=== PATIENT | male | born 1965 | race Caucasian/White ===

== ENCOUNTER 2024-08-01 13:05 | Outpatient (AMB) | payer MEDICARE, MEDICAID, SELFPAY ==
--- NOTE | 2024-08-01 13:09 | A.SPINEOV_ITS ---
Vital Signs 08/01/24 13:14 Height 5 ft 8 in Weight 157 lb BMI 23.9 Intake Visit Reasons: LBP Intake Note: Mr. Morales is here today c/o Low back pain. Net Maker Required: No Allergies Opioids Allergy (Unknown, Uncoded 08/01/24 13:15) Unknown Physical Exam Vital Signs: BMI result Body Mass Index 23.9 Assessment & Plan Assessment & Plan (1) Cervical myelopathy: Code(s): G95.9 - Disease of spinal cord, unspecified Category: Medical Plan Dear Dr Preston, Thank you for referring Mr Morales to our office today. He is a very nice 58-year-old gentleman, recovering alcoholic, last drink was a year and 3 months ago, presents to the office today for evaluation of chronic left leg pain that has been going on for few years but has steadily gotten worse over the last 6 months or so. It starts on the left side just above his belt line radiates into his buttock, posterolateral thigh, to some degree also into his anterior thigh, going down through the front of his leg into his calf in his whole foot. The pain comes on when he stands or walks, goes away when he sits down. He had previously been diagnosed with degenerative disc disease. He had seen an orthopedic surgeon at [facility], and was sent to physical therapy late in 2023. He completed that without any improvement in his symptoms. He had been taking Tylenol and ibuprofen. Unfortunately it did not do anything. He took as much as 800 mg of Motrin 3 times a day without any relief. No cortisone injections, chiropractic or acupuncture. The patient is very frustrated with his quality of life as he is having a lot of difficulty being active. He comes in today with a lumbar MRI showing foraminal stenosis and multilevel degenerative disc disease. PMH: He is a recovering alcoholic, his last drink was a year and 3 months ago, denies any history of cirrhosis or complications secondary to alcoholism. History of double hernia repair, remote history of cervical laminectomy at [facility] many years ago. Based on his incision I would suspect it was C7- T1. Denies any history of cardiac disease, pulmonary issues, liver or kidney problems, blood clots, bleeding disorders, cancer or major abdominal surgery Social hx: As above with alcohol, he does smoke marijuana daily, and smokes about half a pack a cigarettes a day Medications: He does not take any medications except oixc-alo-cceaudb liver health pills which I filled with vitamins and various nutraceuticals Allergies: He is not allergic to opioids, but gets severely nauseous with them Physical exam: Awake alert oriented no acute distress, he has a well healed scar at about what I suspect is the C7-T1 level. He has atrophy of the right hand with a flexion contracture. He has minimal extensor movement of his right hand and digits. His motor strength with hand grasp and palmar flexion is weak bilaterally, worse on the left than the right. He also has weakness of his wrists bilaterally. Biceps, triceps and deltoids are full strength. 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 Imaging review: Lumbar MRI done and [facility] in September of 2023 reveals multilevel degenerative disc disease at every level of the lumbar spine, he has straightening of the normal lordotic curvature of the spine with no si gnificant central canal stenosis but he does have severe foraminal stenosis in the left L 4 and left L5 foramen Impression: 58-year-old male, recovering alcoholic, no known history of liver disease per the patient, presents with a severe left leg radiculopathy which seems consistent with his MRI showing compression of the left L4 and left L5 nerve root. He does not have any centralized back pain. Typically this is something Dr. Dean would treat with foraminotomy. I will review the imaging with Dr. Dean and get back to the patient with a final plan. We did briefly discuss risks, benefits as well as surgical recovery of foraminotomy. In the interim, I have asked the patient to contact you just to get a preoperative note clarifying if he has any history of liver disease given his previous history of alcoholism. Also, he is demonstrating signs of myelopathy on his exam and also complains of numbness in his arms so I would like to get a cervical MRI to exclude compression. Thank you for allowing us to care for your patient. The total time spent with this visit with this patient was 45 minutes reviewing history, physical exam, lumbar imaging review, and implementation of treatment plan or further diagnostic testing Lobo Dean MD,PhD [facility] Orders: Orders MR cervical spine wo con Today G95.9 - Disease of spinal cord, unspecified Coding Level of Care Code New Pt Level 4 (52108) Diagnoses Cervical myelopathy G95.9
[2024-08-01 13:14] VITALS: BMI 23.9
== END 2024-08-01 14:11 | disposition home or self-care (01) ==
PROVIDERS: PCP Family Medicine; Referring Provider Family Medicine; Visit Provider Physician Assistant
DX: G95.9 Disease of spinal cord, unspecified (principal)
CPT/HCPCS: 99204

== ENCOUNTER → 2024-08-01 13:05 | Outpatient (BNVA) | payer MEDICARE, MEDICAID, SELFPAY | PROVIDERS: PCP Family Medicine; Referring Provider Family Medicine; Visit Provider Physician Assistant | DX: G95.9 Disease of spinal cord, unspecified (principal) | CPT/HCPCS: 99202 ==

== ENCOUNTER → 2024-08-07 19:34 | Outpatient (BNV) | payer MEDICARE, MEDICAID, SELFPAY | PROVIDERS: Visit Provider Radiology Diagnostic Radiology | DX: M47.812 Spondylosis without myelopathy or radiculopathy, cervical region (principal); M99.61 Osseous and subluxation stenosis of intervertebral foramina of cervical region | CPT/HCPCS: 72141 ==

== ENCOUNTER 2024-08-07 19:41 | Outpatient (REF) | payer MEDICARE, MEDICAID, SELFPAY ==
--- NOTE | ~2024-08-07 | MR_ITS ---
EXAMINATION: MR CERVICAL SPINE WITHOUT CONTRAST CLINICAL INFORMATION: Disease of spinal cord, unspecified. COMPARISON: None available. TECHNIQUE: MRI of the cervical spine was obtained using routine sequences without contrast. FINDINGS: Craniocervical junction is intact. Bone marrow STIR signal involving mostly the vertebral bodies C5 C7 and to a lesser extent C4 and T1. Multilevel disc desiccation and marginal osteophyte formation and endplate irregularity C4 T1. Grade 1 retrolisthesis C5-6 and C6-7. Reverse curvature apex at C5-6. Buckling deformity in the dorsal aspect of the thecal sac secondary to ligamentum flavum hypertrophy, C5-6 and C6-7 levels and to a lesser extent C4-5. C2-3: No disc herniation. No neuroforamina stenosis. Left facet joint hypertrophy. C3-4: No disc herniation. Facet joint hypertrophy bilaterally. No neuroforamina stenosis. C4-5: Broad-based disc osteophyte complex formation. Facet joint hypertrophy. No cord compression. Bilateral, (on the right side neuroforamina stenosis. C5-6: Disc osteophyte complex formation resulting in flattening deformity of the spinal cord with CSF effacement of the thecal sac. No gross cord signal abnormality. Bilateral neuroforamina stenosis. C6-7: Disc osteophyte complex formation resulting in flattening deformity of the spinal cord and CSF effacement of the thecal sac. No cord signal abnormality. Bilateral neuroforamina stenosis. C7-T1: Disc osteophyte complex formation producing the AP diameter of the thecal sac. No cord compression. No cord signal abnormality. Bilateral neuroforamina stenosis. T1-2: No disc herniation. No neuroforamina stenosis. Right-sided perineural cysts. No prevertebral compartment hematoma, mass or fluid collection. Flow void signal within the main vessels is normal. Codominant vertebral arteries. MR/MR cervical spine wo con IMPRESSION: Multilevel cervical spondylosis C4 C7 resulting in cord compression without cord edema and or myelopathy at C5-6 and C6-7 levels and bilateral neuroforamina stenosis. Electronically signed by: Adama Douglass MD 08/08/2024 08:43 AM EDT
== END 2024-08-07 19:42 | disposition home or self-care (01) ==
LOC: HO.MRI 19:41
PROVIDERS: Visit Provider Physician Assistant
DX: G95.9 Disease of spinal cord, unspecified (principal)
CPT/HCPCS: 72141

== ENCOUNTER 2024-09-18 | Outpatient (REF) | payer MEDICARE, MEDICAID, SELFPAY ==
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
[2024-09-18 10:24] VITALS: BP 115/62; PULSE 54; RESP 18; O2SAT 100; BMI 23.0
--- NOTE | 2024-09-18 10:39 | P.CONAN_ITS ---
HPI - Anesthesia Eval Consult details Narrative: 58yo M for C5-6,C6-7 Ant Cerv Discectomy w/ fusion, 10/02/24 No recent illness No CP/SOB with walking/biking HR alfreda and variable at PAT. ETOH abuse in remission for >1 year Smoker cutting back preop Front lower teeth x 3 slight loose. Pt states no issues when biting into hard things. Reviewed associated risks, verbalized understanding PMFSH Active Problems Active Problems: All Active Problems Cervical myelopathy (Acute) Past Medical History Medical History (Updated 09/18/24 @ 10:18 by Kina Blackburn RN) Arthritis Heartburn Benign liver cyst Alcohol dependence in remission Vitamin D deficiency Elevated blood pressure reading Spinal stenosis at L4-L5 level Back pain Family History Family history of problems with anesthesia: No Surgical History Surgical History (Updated 09/18/24 @ 10:20 by Kina Blackburn RN) Hx of tonsillectomy Hx of right inguinal hernia repair Hx of left inguinal hernia repair Hx of cervical discectomy History of Problems with Anesthesia: No Social History Social History Are you a primary healthcare market consultant to a significant other at home: No Do you presently have visiting nurse or other home services: No Patient Tobacco Use Status: Former Tobacco user Tobacco use type: Cigarette Cigarettes Per Day: 10 Years Smoked: 44 Smoked in Last 30 Days: Yes Use of substances other than those prescribed or required for medical reasons: Yes Substance Use Type Other:: smokes marijuana daily-advised to hold 3 days pre-op Substance Use Frequency: Daily Have you been hit, kicked, punched, or otherwise hurt by someone within the past year? If so, by whom?: No Spiritual Healthcare Practices: no Zoroastrian Healthcare Practices: no-Adventism Cultural Healthcare Practices: no Are you DNR?: No Advance Directives: No (states Aunt is HCP but no official form) Advance Directives Information Provided: Yes (as above noted) Advance Directives on File: No Poor oral hygiene: No (loose teeth lower front due to bone loss & missing teeth) Meds Allergies Allergy/AdvReac Type Severity Reaction Status Date / Time Opioids - Morphine Analogues AdvReac Severe Nausea Verified 09/17/24 08:35 Home Medications ?Medication ?Instructions ?Recorded ?Confirmed ?Last Taken ?Type acetaminophen 500 mg tablet 500 mg PO Q6H PRN pain 09/18/24 09/18/24 Unknown History multivitamin 1 tab PO DAILY 09/18/24 09/18/24 Unknown History Exam Height,Weight and Vital Signs: Height 5 ft 8 in Weight 68.492 kg Last Vital Signs Pulse 54 09/18/24 10:24 Resp 18 09/18/24 10:24 BP 115/62 09/18/24 10:24 Pulse Ox 100 09/18/24 10:24 O2 Del Method Room Air 09/18/24 10:24 Airway Loose/Missing/Broken Teeth: Yes (#9 broken, Loose front lower x 3, extractions throughout) Heart: alfreda, regular Lungs: CTAB Assessment and Plan Assessment Anesthesia Assessment: Anesthesia Plan Discussed, Smoking Cess. Discussed and PAT Visit Final Anesthetic Review Family History of Problems with Anesthesia: No History of Problems with Anesthesia: No
[2024-09-18 11:43] LABS: Hemoglobin 13.3 g/dl (14.0-18.0); Mean Corpuscular HGB Conc 34.1 g/dl (31.0-36.0); Mean Corpuscular Hemoglobin 31.3 pg (27.0-33.0); Mean Corpuscular Volume 91.8 fL (80.0-98.0); Mean Platelet Volume 10.7 fL (9.4-12.4); Platelet Count 286 X10*3/uL (160-400); Red Blood Count 4.25 X10*6/uL (4.60-5.80); White Blood Count 7.8 X10*3/uL (4.8-10.8)
[2024-09-18 12:01] LABS: Alanine Aminotransferase 31 U/L (0-40); Albumin Level 4.3 g/dL (3.5-5.0); Alkaline Phosphatase 55 U/L (39-117); Anion Gap 11 (12-20); Aspartate Amino Transferase 34 U/L (5-37); Bilirubin Total 0.3 mg/dL (0.0-1.0); Blood Urea Nitrogen 7 mg/dL (9-16); Calcium 8.9 mg/dL (8.4-10.2); Carbon Dioxide 29 mmol/L (22-29); Chloride 105 mmol/L (96-108); Creatinine Clr Calc Pharmacy 106.4; Estimated Glomerular Filt Rate > 60; Glucose Random 92 mg/dL (60-115); Potassium 4.9 mmol/L (3.3-5.1); Sodium 140 mmol/L (135-145)
--- OUTSIDE RECORDS SUMMARY | 2024-11-05 06:46 | XMS_ITS | Clinical Summary ---
Author Organization [employer] Address [address] [place] [address] Care Team Providers Care Cosmetic Sales Name Role Phone Imelda Prseton MD Primary Care Provider [phone] Kristen Lawson Unavailable Unavailable Allergies No known [...] AM EDT): Staying with a freind on [employer] Assessment & Plan (08/08/2022 9:34 AM EDT): [...] his SSI was stolen due to fraud. [facility] says he may be able to get [...] Type Department Care Team Description 09/17/2024 Telephone [place] [facility] [address] [facility] [place] [address] Ami Sarabia RN req labs pre-op 08/19/2024 9:00 AM EDT Office Visit [place] [facility] [address] [facility] [place] [address] Imelda Preston MD Spinal stenosis of lumbar region with radiculopathy (Primary Dx); Sheltered homelessness; Cigarette nicotine dependence, uncomplicated from Last 3 Months Family History Relation Name Status Comments Father Mother Other Social History Tobacco Use Types Packs/Day Years Used Date Smoking Tobacco: Every Day Cigarettes Smokeless Tobacco: Never Tobacco Cessation:Ready to Q uit: Not Asked; Counseling Given: Not Answered Alcohol Use Standard Drinks/Week Comments Not Currently 0 (1 standard drink = 0.6 oz pur e alcohol) Overall Financial Resource Strain (CARDI) Answe r Date Recorded How hard is [...] 63 08/19/2024 8:59 AM EDT Temperature 37.1 C (98.7 F) 08/19/2024 8:59 AM EDT Respiratory Rate 20 07/08/2024 8:39 AM EST [...] 19+ 3-dose series) 12/05/1986 Pneumococcal Vaccine: 50+ Years (1 of 2 - PCV) 12/05/1986 Zoster Vaccines (1 of 2) 12/05/2017 COVID-19 Vaccine ( - 2023-2 5 season) 2024 Tobacco Screening 11/19/2024 11/20/2023 Influenza Vaccine (Season Ended) 2025 Lipid Panel 07/24/2028 07/25/2023, 07/25/2023 RSV Patients and Patients Aged 60 years or older (1 - [...] Procedure Name Priority Date/Time Associated Diagnosis Comments LIPID PANEL, STANDARD Routine 07/25/2023 Mixed hyperlipidemia from Last 3 Months or Most Recently Relevant to Health Maintenance Results * Lipid Panel, Standard (07/25/2023) Blood Venous blood specimen / Unknown Imelda Preston MD LAB BLOOD ORDERABLES Final Res ult EXTERNAL LAB from Last 3 Months or Most Recently Relevant to Health Maintenance Insurance [facility] STANDARD [employer] MEDICARE REPLACEMENT Care Teams Cosmetic Sales Relationship Specialty Start Date End Date Imelda Preston MD [address] [place] [address] PCP - General Family Medicine 08/08/22 Kristen Lawson Community Health Worker 11/28/22
== END 2024-09-18 00:01 | disposition home or self-care (01) ==
LOC: HO.PAT
PROVIDERS: Nurse Practitioner; Visit Provider Neurological Surgery
DX: Z01.818 Encounter for other preprocedural examination (principal); G95.9 Disease of spinal cord, unspecified
CPT/HCPCS: 36415; 80053; 85027

== ENCOUNTER 2024-09-27 11:36 | Outpatient (AMB) | payer MEDICARE, MEDICAID, SELFPAY ==
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
--- NOTE | 2024-09-27 11:45 | HO.SPINEOV ---
Intake Visit Reasons: Discuss surgery Intake Note: Mr. Morales is here to Discuss Surgery. Tactical Intelligence Officer Required: No Allergies Opioids - Morphine Analogues Adverse Reaction (Severe, Verified 09/27/24 11:45) Nausea Assessment & Plan Assessment & Plan (1) Cervical myelopathy: Code(s): G95.9 - Disease of spinal cord, unspecified Category: Medical Plan Mr Morales is here in follow up today. We submitted for surgery ACDF C5-6, C6-7 for cervical myelopathy. Unfortunately his insurance company denied it saying he needs to quit smoking and undergo physical therapy. I reviewed his MRI done at [place] with him, we sat down discuss the indications for surgery including the bilateral arm numbness, hand weakness, gait instability as well as hyperreflexia in the form of Wilson's sign and clonus on his physical exam. His MRI clearly shows spinal cord compression at these 2 levels C5-6, C6-7. I do not understand the denial from the insurance company. Cervical myelopathy is not something that is going to respond to physical therapy. In fact it only in dangerous the patient's well-being to continue to push the surgery off in an attempt to get him to quit smoking or to do physical therapy for year. I am going to resubmit for the surgery, and hopefully this note provide some clarification as to the indication. If not we will need to do a peer to peer and I can have the insurance company explain to me and Dr. Dean specifically why they want to continue to put this patient at further risk. Pt was given risk and benefits of surgery including but not limited to infection, hematoma , nerve injury,durotomy, weakness,bowel/bladder injury, persistent pain, dysphagia, vocal hoarseness as well as the option to continue with conservative treatment and patient wishes to proceed with surgery. . All questions were answered to the best of our ability. If there is anything about this patients medical history that we have overlooked or concerns you have about us proceeding with surgery we would appreciate any input you can offer. Total amount of time spent in this visit was 20 minutes in discussion of symptoms, cervical MRI imaging results and subsequent plan of care Lobo Dean MD,PhD [facility] Coding Level of Care Code Est Pt Level 3 (76276) Diagnoses Cervical myelopathy G95.9
== END 2024-09-27 12:06 | disposition home or self-care (01) ==
LOC: HO.HNS 11:37
PROVIDERS: PCP Family Medicine; Visit Provider Physician Assistant
DX: G95.9 Disease of spinal cord, unspecified (principal)
CPT/HCPCS: 99213

== ENCOUNTER → 2024-09-27 11:36 | Outpatient (BNVA) | payer MEDICARE, MEDICAID, SELFPAY | PROVIDERS: PCP Family Medicine; Visit Provider Physician Assistant | DX: G95.9 Disease of spinal cord, unspecified (principal) | CPT/HCPCS: 99212 ==

== ENCOUNTER → 2024-11-22 13:01 | Outpatient (BNV) | payer MEDICARE, MEDICAID, SELFPAY | PROVIDERS: Visit Provider Internal Medicine | DX: R00.1 Bradycardia, unspecified (principal) | CPT/HCPCS: 93010 ==

== ENCOUNTER 2024-12-05 05:54 | Day surgery (SDC) | payer MEDICARE, MEDICAID, SELFPAY ==
[2024-11-21 12:00] VITALS: BMI 23.0
--- NOTE | 2024-11-22 13:01 | ECG_ITS ---
Test Reason : PREOP Blood Pressure : */* mmHG Vent. Rate : 42 BPM Atrial Rate : 42 BPM P-R Int : 144 ms QRS Dur : 98 ms QT Int : 432 ms P-R-T Axes : 18 -44 -25 degrees QTcB Int : 360 ms Marked sinus bradycardia Left axis deviation Abnormal ECG No previous ECGs available Referred By: Ciara Wagner Electronically Signed By: YONG KELLEY
--- NOTE | 2024-12-04 09:00 | HO.ANESPROP2 ---
Documented by User: Ciara Wagner NP 12/04/24 14:33 HPI - Anesthesia Eval Consult details Narrative: 58yo M for C5-6, C6-7 Ant Cerv Discectomy w/ fusion Preop EKG with marked SB. Previous EKG with HR in 60's. No heart blocks identified on EKG. T/C to patient - pt is asymptomatic , active with walking and yardwork. Has wrist heart rate monitor and will document HR to bring log DOS. Previous documented HR 50-60's. Hx of ETOH - multiple [facility] ER/admits with intox [id number]. Sober > 1 year. [facility] Active Problems Active Problems: All Active Problems Cervical myelopathy (Acute) Past Medical History Medical History (Updated 12/05/24 @ 07:09 by Adenike Beltran RN) Hx of sinus bradycardia Arthritis Heartburn Benign liver cyst Alcohol dependence in remission Vitamin D deficiency Elevated blood pressure reading Spinal stenosis at L4-L5 level Back pain Family History Family history of problems with anesthesia: No Surgical History Surgical History Hx of tonsillectomy Hx of right inguinal hernia repair Hx of left inguinal hernia repair Hx of cervical discectomy History of Problems with Anesthesia: No Social History Social History Are you a primary foster care therapist to a significant other at home: No Do you presently have visiting nurse or other home services: No Patient Tobacco Use Status: Former Tobacco user Tobacco use type: Cigarette Cigarettes Per Day: 10 Years Smoked: 44 Use of substances other than those prescribed or required for medical reasons: Yes Substance Use Type Other:: advised to hold 3-5 days pre-op Substance Use Frequency: Daily Have you been hit, kicked, punched, or otherwise hurt by someone within the past year? If so, by whom?: No Spiritual Healthcare Practices: no Yazidi Healthcare Practices: no Cultural Healthcare Practices: no Are you DNR?: No Advance Directives: No (states aunt is HCP but no official form) Poor oral hygiene: No (loose tooth lower front due to bone loss & missing teeth) Meds Allergies Allergy/AdvReac Type Severity Reaction Status Date / Time Opioids - Morphine Analogues AdvReac Severe Nausea Verified 09/27/24 11:45 Home Medications ?Medication ?Instructions ?Recorded ?Confirmed ?Last Taken ?Type acetaminophen 500 mg tablet 500 mg PO Q6H PRN pain 09/18/24 12/05/24 11/21/24 History multivitamin 1 tab PO DAILY 09/18/24 11/21/24 11/21/24 History Exam Height,Weight and Vital Signs: Height 5 ft 8 in Weight 68.492 kg Pertinent Lab Results Pertinent Lab Results: Laboratory Tests 09/18/24 11:08 WBC 7.8 Hgb 13.3 L Hct 39.0 L Plt Count 286 Sodium 140 Potassium 4.9 Chloride 105 Carbon Dioxide 29 BUN 7 L Creatinine 0.75 Assessment and Plan Assessment Anesthesia Assessment: Chart Reviewed Final Anesthetic Review Family History of Problems with Anesthesia: No History of Problems with Anesthesia: No Documented by User: Mini Serrano NP 12/04/24 14:11 [facility] Past Medical History Medical History (Updated 12/05/24 @ 07:09 by Adenike Beltran RN) Hx of sinus bradycardia Arthritis Heartburn Benign liver cyst Alcohol dependence in remission Vitamin D deficiency Elevated blood pressure reading Spinal stenosis at L4-L5 level Back pain Surgical History Surgical History Hx of tonsillectomy Hx of right inguinal hernia repair Hx of left inguinal hernia repair Hx of cervical discectomy Social History Social History Are you a primary foster care therapist to a significant other at home: No Do you presently have visiting nurse or other home services: No Patient Tobacco Use Status: Former Tobacco user Tobacco use type: Cigarette Cigarettes Per Day: 10 Years Smoked: 44 Use of substances other than those prescribed or required for medical reasons: Yes Substance Use Type Other:: advised to hold 3-5 days pre-op Substance Use Frequency: Daily Have you been hit, kicked, punched, or otherwise hurt by someone within the past year? If so, by whom?: No Spiritual Healthcare Practices: no Yazidi Healthcare Practices: no Cultural Healthcare Practices: no Are you DNR?: No Advance Directives: No (states aunt is HCP but no official form) Poor oral hygiene: No (loose tooth lower front due to bone loss & missing teeth) Meds Allergies Allergy/AdvReac Type Severity Reaction Status Date / Time Opioids - Morphine Analogues AdvReac Severe Nausea Verified 09/27/24 11:45 Home Medications ?Medication ?Instructions ?Recorded ?Confirmed ?Last Taken ?Type acetaminophen 500 mg tablet 500 mg PO Q6H PRN pain 09/18/24 12/05/24 11/21/24 History multivitamin 1 tab PO DAILY 09/18/24 11/21/24 11/21/24 History Exam Narrative Narrative: EKG 11/22/24 Vent. Rate : 42 BPM Atrial Rate : 42 BPM P-R Int : 144 ms QRS Dur : 98 ms QT Int : 432 ms P-R-T Axes : 18 -44 -25 degrees QTcB Int : 360 ms Marked sinus bradycardia Left axis deviation Abnormal ECG No previous ECGs available Documented by User: Yola Rebolledo MD 12/05/24 07:17 [facility] Past Medical History Medical History (Updated 12/05/24 @ 07:09 by Adenike Beltran RN) Hx of sinus bradycardia Arthritis Heartburn Benign liver cyst Alcohol dependence in remission Vitamin D deficiency Elevated blood pressure reading Spinal stenosis at L4-L5 level Back pain Surgical History Surgical History Hx of tonsillectomy Hx of right inguinal hernia repair Hx of left inguinal hernia repair Hx of cervical discectomy Social History Social History Are you a primary foster care therapist to a significant other at home: No Do you presently have visiting nurse or other home services: No Patient Tobacco Use Status: Former Tobacco user Tobacco use type: Cigarette Cigarettes Per Day: 10 Years Smoked: 44 Use of substances other than those prescribed or required for medical reasons: Yes Substance Use Type Other:: advised to hold 3-5 days pre-op Substance Use Frequency: Daily Have you been hit, kicked, punched, or otherwise hurt by someone within the past year? If so, by whom?: No Spiritual Healthcare Practices: no Yazidi Healthcare Practices: no Cultural Healthcare Practices: no Are you DNR?: No Advance Directives: No (states aunt is HCP but no official form) Poor oral hygiene: No (loose tooth lower front due to bone loss & missing teeth) Meds Allergies Allergy/AdvReac Type Severity Reaction Status Date / Time Opioids - Morphine Analogues AdvReac Severe Nausea Verified 09/27/24 11:45 Home Medications ?Medication ?Instructions ?Recorded ?Confirmed ?Last Taken ?Type acetaminophen 500 mg tablet 500 mg PO Q6H PRN pain 09/18/24 12/05/24 11/21/24 History multivitamin 1 tab PO DAILY 09/18/24 11/21/24 11/21/24 History Exam Airway Mallampati Class: II TM Dist: >3cm Neck ROM: Full Loose/Missing/Broken Teeth: Yes and Upper Assessment and Plan Assessment Anesthesia Assessment: Anesthesia Plan Discussed Final Anesthetic Review NPO: Yes ASA Class: II Final Preanesthetic Review: No Changes in Pt Med Stat, Meds/Allgs Chart Reviewed, Consent Obtained/Reviewed and Anes Risks/Benef Reviewed Patient Risk: Low Procedure Risk: Intermediate Anesthetic Plan Anesthetic Plan: GA Disposition: Standard PACU
[2024-12-05] VITALS (7 sets, daily range): BP systolic 105–132; BP diastolic 39–80; PULSE 36–45; RESP 14–20; TEMP 36.4–36.6; O2SAT 98–100; BMI 21.9
--- NOTE | ~2024-12-05 | FL_ITS ---
EXAMINATION: FL GUIDANCE ONLY HISTORY: cervical fusion COMPARISON: Correlation is made with an MRI of the cervical spine dated 08/07/2024. TECHNIQUE: Fluoroscopy time: 4.7 seconds. Cumulative Dose: 0.6022 mGy. DAP: 0.2620 mGym2 Images: 2. FINDINGS: Fluoroscopic spot films of the cervical spine demonstrate anterior cervical disc fusion at C5-6 and C6-7. FL/FL guidance in OR IMPRESSION: Fluoroscopy during procedure. Please see procedure report for additional information. Electronically signed by: Camden Humphries MD 12/05/2024 09:52 AM EDT
[2024-12-05] MEDS: Lactated Ringers 1,000 ML 100 ML IVCONT (06:08)
--- NOTE | 2024-12-05 07:01 | P.HPSUR_ITS ---
Pre-Procedural Eval Section A - 24 Hr Update-Section A only Date of Service: 12/05/24 The patient is an INPATIENT: No Changes since office visit: No Cold of Flu in the past 2 weeks, No New Medical Problems, No Changes in Medication and No Patient answered all questions The patient has been examined within 24 hours of the surgical procedure. The History & Physical has been completed within 30 days and I have reviewed it.: No Section B - Complete if H&P > 30 days Chief Complaint: Disease of spinal cord, unspecified Allergies: Allergies Allergy/AdvReac Type Severity Reaction Status Date / Time Opioids - Morphine Analogues AdvReac Severe Nausea Verified 09/27/24 11:45 Review of Systems Sugical H&P ROS: Negative: Constitution, Cardiovascular, Respiratory, Neurological, Psychiatric, Hem-Onc, Allergic/Immunologic, Gastrointestinal, Genitourinary, Musculoskeletal, Integumentary, Endocrine and Eyes/Ears/N ose/Throat Exam Surgical H&P Exam: Normal: HEENT, Normal: Heart, Normal: Lungs, Normal: Extremities, Normal: Abdomen, Normal: Skin and Normal: Neurological (Awake alert oriented x3) Plan Diagnosis/Plan: Unchanged C5-6, C6-7 anterior cervical diskectomy and fusion Time Spent With Patient Time: Total time managing care of this patient today __ 5 __ minutes.
--- NOTE | 2024-12-05 07:02 | PM.DS ---
DS: Providers Provider Date of Service: 12/05/24 Date of discharge: 12/05/24 Primary care physician: Unknown Physician Admitting clinician: Carter Dean DS: Diagnosis Discharge Diagnosis (1) Cervical myelopathy: Status: Acute DS: Summary Time Attestation Discharge Coordination Time (in mins): 5 Quality: Safe Use of Opioids Does Pt have an Active Cancer Diagnosis on the Problem List?: No Quality: Stroke Does the patient have a stroke diagnosis?: No Physical Exam Vital Signs: Vital Signs: Last Vital Signs Temp 97.5 F 12/05/24 06:15 Pulse 44 L 12/05/24 06:15 Resp 18 12/05/24 06:15 BP 113/39 L 12/05/24 06:15 Pulse Ox 98 12/05/24 06:15 O2 Del Method Room Air 12/05/24 06:15 BMI result Body Mass Index 21.9 Discharge Plan Discharge Patient Disposition: Home, Self-Care Referrals: Physician,Unknown J [Primary Care Provider, Medical] - 1 Week Discharge Medications: New docusate sodium [Colace] 100 mg capsule 100 mg PO BID Qty: 20 0RF oxycodone 5 mg tablet 5 mg PO Q4H PRN (Reason: pain) Qty: 30 0RF Rx Instructions: Partial Fill upon patient request. Continued acetaminophen 500 mg tablet 500 mg PO Q6H PRN (Reason: pain) multivitamin Tablet 1 tab PO DAILY Discharge Orders: Discharge Order (Routine); Ordered 12/05/24 Ordered By: Lobo Silveira Diet: Advance to usual diet Activity on Discharge: As tolerated Activity Restrictions/Additional Instructions: After your spinal surgery we ask you to observe the following restrictions/guidelines: Activity: It is normal to feel some discomfort as you increase your activity, but that will improve with time. We ask you avoid heavy lifting or acitivities that cause pain. As a general rule, 8lbs is a safe limit for lifting right after surgery. Walk as much as you feel comfortable but not to exhaustion. You will feel extra tired the first few days after surgery. Stay well hydrated. It is OK to walk up and down stairs You may return to driving when you are off narcotics (such as vicodin, oxycodone, dilaudid, etc), and you are back to normal functional capacity. If you have any concerns please check with office before driving. Return to work is specific to each patient and each surgery, so please speak with your doctor/PA at first follow up. Please bring paperwork such as FMLA at that time if you need it filled out. Medications: For optimum pain control, it is best to start with a combination of 500 mg of Tylenol every 4 hours with 600 mg of Motrin every 8 hours, and use narcotics as needed in between for breakthrough pain. We will give you a short supply of narcotics after surgery (usually one weeks worth). If you need more please call the office but do not use more than prescribed. You will need to give our office 48 hours notice if you need narcotics refilled and we do not fill narcotics on weekends or evenings. If you are on a narcotic, it is a good idea to take a stool softener such as colace or senna to avoid constipation If you take blood thinner such as aspirin, Plavix, Coumadin, Effient, Eliquis etc for conditions such as Afib, DVT, Pulmonary embolus, coronary disease, stents etc please speak with your surgeon about specific details as to when you can resume these medications. You can resume NSAIDs on post op day 1 (eg: Motrin, Naproxen, etc). Follow up: Please call the office, , after surgery to arrange a 3 week follow up for wound check. Wound Care: You may remove your dressing on the first day after surgery. ?You may ?leave open to air. Please do not remove the steri strips underneath. they will fall off on their own in one week. IT IS NORMAL FOR THE WOUND TO OOZE OR BE BLOODY FOR A FEW DAYS AFTER SURGERY. ?IF THIS HAPPENS JUST PLACE NEW DRESSING OVER IT TO AVOID STAINING CLOTHES. You may shower on post op day # 1 We ask that you do not let the water soak the wound. If it does get wet, just towel dry lightly. Please do not scrub your incision or place any type of chemical/ointment on the wound. No tub baths, pools or jacuzzis for one month. If you have any leaking or redness from your wound, or fevers, please call office Print Language: Kittitian
--- NOTE | 2024-12-05 07:09 | PC.NURSE ---
pt pulse 38-48 anesthesia aware no sypmtoms ekg by neon pumper show sisi bradycardia
--- NOTE | 2024-12-05 09:39 | W.PM.OPN ---
Operative Note Operative Note Date of Service: 12/05/24 Narrative: Preoperative Diagnosis: Bilateral arm numbness/cervical myelopathy Procedure: C5-6, C6-7 Anterior discectomy, arthrodesis and implantation cage ; C5-C7 anterior instrumentation ; local autograft; microscope Informed Consent was obtained for this operation. I have explained the nature, purpose and benefits of the operation. I have discussed the risks and benefit of the operation including possible complications or adverse events with patient/family. Alternative(s) were discussed with the patient with their relative benefits and risks as well as the consequences of not accepting the operation were included in obtaining consent. Surgeon: MELVIN PHELAN MD, PHD Procedure Assisted By: JASPREET Bolden Description of Procedure: This 59-year-old male suffering from bilateral arm numbness. An MRI shows severe degenerative disc disease C5-6 and C6-7 with spinal cord compression and foraminal stenosis. He was offered an anterior diskectomy and fusion of the levels. The procedure complications were explained. The patient was consented. The patient was brought to the operating room and endotracheally intubated. The patient was put in supine position with slight extension of the neck. Prep and drape was done followed by timeout. A mid cervical incision was made followed by opening of the platysma. The prevertebral fascia was reached following the natural planes while the physician radiology physician assistant provided manual retraction. The prevertebral fascia was opened to expose the disc space. A spinal needle was placed in the disk space to confirm the correct level with xray. The longus colli muscles were released bilaterally and a self retaining retractor was inserted. An initial diskectomy was done of C5-6 and C6-7. Those disc spaces were severely degenerated. Two [place] pins were placed in the C5 and C6 vertebral bodies and distraction was give over the interspace. The discectomy was completed toward the posterior annulus of the disc. The microscope was brought in. The remainder of the discectomy was completed. The posterior ligament was opened and resected to expose the underlying dura. LargeoOsteophytes were resected from the body of C5 and C6 and saved for autograft. Bilateral foraminotomies were done to relieve severe bilateral foraminal stenosis. The endplates were prepared after which a 6 mm cage filled with autograft was inserted into the disc space. A separate attached plate was locked down with 2 x 14 mm screws as anterior instrumentation. Then attention was turned to the C6-7 disc space. The [place] pin from the body of C5 was placed in C7 distraction was giving over the C6-7 disc space. I need to use the high-speed drill to widened disc space towards the posterior osteophytes. Eventually I was able to get a 1. Kerrison under the osteophyte and resect those partially. Then a 2. Kerrison was used to further resect them. A hypertrophied PLL was opened and resected finally large osteophyte were taken down from the body of C6 and C7 to decompress the spinal cord and exiting nerve roots. A 6 mm cage filled with autograft was inserted into the disc space. A separate attached plate was locked down with 2 x 14 mm screws as anterior instrumentation. Final x-rays in AP and lateral projection showed a satisfactory position of the implants. The physician radiology physician assistant took over. The [place] pin was removed. Hemostasis was done. He closed the incision in 2 layers with a 3-0 Vicryl. Steri-Strips used to approximate incision. An OpSite with Tegaderm was used to cover the incision. All sponge and needle counts were correct. Patient was extubated and transported in stable is to recovery room. Anesthesia: General Estimated Blood Loss (ml): 40 Duration of Surgery: 1 hour 45 minutes Postoperative Plan: Discharge home Complications: None
== END 2024-12-05 11:08 | disposition home or self-care (01) ==
PROVIDERS: Visit Provider Neurological Surgery
PROC: (CPT 22551; principal; 2024-12-05 07:30)
DX: M50.022 Cervical disc disorder at C5-C6 level with myelopathy (principal); M50.023 Cervical disc disorder at C6-C7 level with myelopathy; M48.02 Spinal stenosis, cervical region; R20.0 Anesthesia of skin; R26.89 Other abnormalities of gait and mobility; F10.21 Alcohol dependence, in remission; F17.210 Nicotine dependence, cigarettes, uncomplicated
CPT/HCPCS: 22551; 22552; 22853; 20936; 22845; 93005; C1713; C1889; J0131; J0690; J1100; J2003; J2250; J2405; J2704; J3010

== ENCOUNTER → 2024-12-05 05:54 | Outpatient (BNV) | payer MEDICARE, MEDICAID, SELFPAY | PROVIDERS: Visit Provider Neurological Surgery | DX: M50.022 Cervical disc disorder at C5-C6 level with myelopathy (principal); M50.023 Cervical disc disorder at C6-C7 level with myelopathy | CPT/HCPCS: 20936; 22551; 22552; 22845; 22853; 99499 ==

== ENCOUNTER 2024-12-30 11:46 | Outpatient (AMB) | payer MEDICARE, MEDICAID, SELFPAY ==
--- NOTE | 2024-12-30 11:54 | A.SPINEOV_ITS ---
Intake Visit Reasons: 1st post op Intake Note: Aliza Quick is here today for his 1st post op. Firearms Sales Associate Required: No Allergies Opioids - Morphine Analogues Adverse Reaction (Severe, Verified 12/30/24 11:54) Nausea Assessment & Plan Assessment & Plan (1) S/P cervical spinal fusion: Code(s): Z98.1 - Arthrodesis status Category: Surgical Plan Procedure: C5-7 ACDF Giles is a pleasant 59 year old male who underwent C5-7 ACDF 12/05/[address] Dean. Since surgery, he reports that he did have a fairly significant flare-up of pain that lasted about 7 to 10 days after his surgery. Thankfully this flare-up of pain resolved, and he is feeling much better today. States that about 95% of his pain has resolved since his surgery. He still has some numbness near the base of his bilateral thumbs, but states this is also present for his surgery. Overall he is very satisfied with the procedure, and is doing well. He is not take any oral pain medications any longer. No new neurological deficits. The patient ambulates well and rises from a seated position without difficulty. His anterior incision site is closed and well healing. I would like to follow up with Giles again in 6 weeks for his 2nd postop visit, with a set of x-rays. Malick Dean MD,PhD [facility] Coding Level of Care Code Global (62692) Diagnoses S/P cervical spinal fusion Z98.1
--- OUTSIDE RECORDS SUMMARY | 2024-12-30 13:18 | XMS_ITS | Clinical Summary ---
Author Organization [employer] Address [address] [facility] [address] [place] [address] Care Team Providers Care Wind Turbine Machinist Name Role Phone Imelda Preston MD Primary Care Provider [phone] Kristen Lawson Unavailable Unavailable Allergies No known [...] the same time. 30 patch 2 5 Active Active Problems Problem Noted Date Diagnosed Date Chronic left-sided low back pain with left-sided sciatica 09/19/2022 Sheltered homelessness 08/08/2022 Assessment & Plan (09/19/2022 9:27 AM EDT): Staying with a freind on [address] Assessment & Plan (08/08/2022 9:34 AM EDT): [...] is a huge part of his treatment Family History Relation Name Status Comments Father [...] 2024 Tobacco Screening 11/19/2024 11/20/2023 Influenza Vaccine (#1) 2025 Lipid Panel 07/24/2028 07/25/2023, 07/25/2023 RSV [...] Most Recently Relevant to Health Maintenance Insurance [facility] AETNA MEDICARE REPLACEMENT Care Teams Wind Turbine Machinist Relationship Specialty Start Date End Date Imelda Preston MD [address] [place] [address] PCP - General Family Medicine 08/08/22 Kristen Lawson Community Health Worker 11/28/22
--- OUTSIDE RECORDS SUMMARY | 2024-12-30 13:18 | XMS_ITS | Clinical Summary ---
Author Organization [facility] Address [address] [place], [place] [id number] Phone Care Team Providers Care Pyrometer Mechanic Name Role Phone Imelda Preston MD Primary Care Provider Allergies No known active allergies Medications No known medications Social History Tobacco Use Types Packs/Day Years Used Date Smoking Tobacco: Every Day Cigarettes Smokeless Tobacco: Never Alcohol Use Standard Drinks/Week Comments Not Currently 0 (1 standard drink = 0.6 oz pur e alcohol) Education Answer Date Recorded Are you interested in more education? Not on eugene e 09/02/2022 Are you concerned about learning? Not on file 09/02/2022 No 09/02/2022 No 09/02/2022 Digital Access Answer Date Recorded No 09/30/2022 No 09/30/2022 Reliable internet access at home? Not on file 09/30/2022 Device with a working camera? Not on file Intimate Partner Violence Answer Date R ecorded Are you denied basic needs s uch as food, clothing, or medical care? No 09/24/2022 In the past 12 months have y ou been in a relationship with a person who hurts, threatens, or tries to control you? No 09/24/2022 Are you denied basic needs s uch as food, clothing, or medical care? No 09/24/2022 In the past 12 months have y ou been in a relationship with a person who hurts, threatens, or tries to control you? No 09/24/2022 Sex and Gender Information Value Date Recorded Sex Assigned at Not on file Legal Sex Male 9:37 PM EDT Gender Identity Not on file Sexual Orientation Not on file Last Filed Vital Signs Vital Sign Reading Time Taken Comments Blood Pressure 152/90 03/17/2010 1:33 AM EST Pulse 88 09/24/2022 12:04 PM EDT Temperature 36.3 C (97.3 F) 09/24/2022 12:04 PM EDT Respiratory Rate 18 09/24/2022 12:04 PM EDT Oxygen Saturation 100% 09/24/2022 12:04 PM EDT Inhaled Oxygen Concentration - - Weight 65.8 kg (145 lb) 04/10/2024 1:47 PM EST Height 172.7 cm (5' 8 ) 04/10/2024 1:47 PM EST Body Mass Index 22.05 04/10/2024 1:47 PM EST Plan of Treatment Not on file Medical Devices Not on file Insurance MEDICARE PART A & B [facility] AETNA O MEDICARE REPLACEMENT MEDICARE PART A & B [facility] RE[facility] MEDICARE PART A & B [place] & B [id number] [place], [place] [address]HEALTH MEDICARE PART A & B [facility] AETNA O MEDICARE REPLACEMENT MEDICARE PART A & B [facility] & B [facility] AETNA PPO MEDICARE REPLACEMENT MEDICARE PART A & B [facility] AETNA O MEDICARE REPLACEMENT MEDICARE PART A & B [facility] AETNA PPO MEDICARE REPLACEMENT Care Teams Pyrometer Mechanic Relationship Specialty Start Date End Date Imelda Preston MD [address] [place] [address] PCP - General Family Medicine 12/29/22 Additional Source Comments The information contained in this document represents components of the legal health record. It is not the complete legal health record.[facility]
== END 2024-12-30 12:12 | disposition home or self-care (01) ==
LOC: HO.HNS 11:47
PROVIDERS: Visit Provider Physician Assistant
DX: Z98.1 Arthrodesis status (principal)
CPT/HCPCS: 99024

== ENCOUNTER → 2024-12-30 11:46 | Outpatient (BNVA) | payer MEDICARE, MEDICAID, SELFPAY | PROVIDERS: Visit Provider Physician Assistant | DX: Z98.1 Arthrodesis status (principal) | CPT/HCPCS: 99212 ==

== ENCOUNTER 2025-02-10 08:23 | Outpatient (REF) | payer MEDICARE, MEDICAID, SELFPAY ==
--- NOTE | ~2025-02-10 | XR_ITS ---
EXAMINATION: XR CERVICAL SPINE CLINICAL INFORMATION: Z98.1 - Arthrodesis status COMPARISON: None available. Correlation made with MRI cervical 08/07/2024. TECHNIQUE: 3 views of the cervical spine were obtained. FINDINGS: There is no significant scoliosis. There is a minimal reversal of the normal lordosis in the neutral position, apex at C4. There has been fusion of C5-6 and C6-7 with disc prosthesis with associated oblique endplate screws. The hardware appears intact and well seated without definite loosening or lucency surrounding the screws. There is no fracture, compression deformity, or suspicious bone lesion. There is a 2 mm degenerative retrolisthesis of C4 on C5. There is no additional subluxation. Severe disc degeneration is present at C4-5, and C7-T1. There is otherwise mild disc degeneration at C2-3 and C3-4. Facets are normally aligned bilaterally. There are mild to moderate multilevel degenerative facet changes, most significant at C3-4 on the left. Flexion and extension views demonstrate no evidence of worsening subluxation or new subluxation. There is no evidence of instability. There is no prevertebral or paravertebral soft tissue abnormality. Imaged lung apices are clear. XR/XR cervical spine 4V IMPRESSION: 1. No acute finding of the cervical spine. 2. Fusion of C5-6 and C6-7 without complication evident. 3. Moderate degenerative spondylosis as discussed. No definite evidence of instability on flexion and extension views. Electronically signed by: Bro Bhakta MD 02/10/2025 02:14 PM EDT
--- OUTSIDE RECORDS SUMMARY | 2025-02-11 09:11 | XMS_ITS | Encounter Summary ---
Author Organization [facility] Address [address] [place], [place] [phone] Phone Care Team Providers Care Press Reader Name Role Phone Imelda Preston MD Primary Care Provider + [phone] Reason for Referral * MRI/CAT Scan - Closed Specialty Diagnoses / Procedures Referred By Sukumar tamayo Referred To Contact Radiology Diagnoses Constipation, unspecified constipation type Periumbilical abdominal pain Change in bowel habits Procedures CT Abdomen/Pelvis CHG CT SCAN,ABDOMENT AND PELVIS,W CONTRAST Louise Adam CNP Phone: tel: fax: [email or web address]:[email or web address] Referral ID Status Reason Start Date Expiration Date Visits Re quested Visits Authorized [id number] Closed 01/19/2024 07/17/2024 1 1 Encounter Details Date Type Department Care Team (Latest Contact Info) Description 01/19/2024 Transcribe Orders Virtual Department [address] [place] [address] Louise Adam CNP [address] [place] [address] [email or web address] Constipation, unspecified constipation type (Primary Dx); Periumbilical [...] clinician's provided indication for this examination in [facility]:Outside Radiology Order; constipation TECHNIQUE: Multidetector-row CT of [...] system documented in this encounter Care Teams Press Reader Relationship Specialty Start Date End Date Imelda Preston MD [address] [place] [address] PCP - General Family Medicine 12/29/22 documented as of this encounter Additional Source Comments The information contained in this document represents components of the legal health record. It is not the complete legal health record.[facility]
--- OUTSIDE RECORDS SUMMARY | 2025-02-11 09:11 | XMS_ITS | Encounter Summary ---
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 Procedures MRI Lumbar Spine Imelda Preston MD Phone: tel: fax: mailto:[email or web address] Referral ID Status Reason Start Date Expiration Date Visits Re quested Visits Authorized [id number] Closed 08/17/2023 08/16/2024 1 1 Encounter Details Date Type Department Care Team (Latest Contact Info) Description 08/15/2023 Transcribe Orders Virtual Department [address] [place] [address] Imelda Preston MD [address] [place] [address] [email or web address] Arthritis of right hip (Primary Dx); Neurologic [...] disc documented in this encounter Care Teams Electric Refrigerator Servicer Relationship Specialty Start Date End Date Imelda Preston MD [address] [place] [address] [email or web address] PCP - General Family Medicine 12/29/22 documented as of this encounter Additional Source Comments The information contained in this document represents components of the legal health record. It is not the complete legal health record.[facility]
--- OUTSIDE RECORDS SUMMARY | 2025-02-11 09:11 | XMS_ITS | Encounter Summary ---
Author Organization [facility] Address [address] [place] [address] Phone Care Team Providers Care Assembly Machine Operator Name Role Phone Imelda Preston MD Primary Care Provider Encounter Details Date Type Department Care Team (Late st Contact Info) Description 04/02/2024 Procedure Pass [facility], [address] [address] Social History Tobacco Use Types Packs/Day Years [...] on filedocumented in this encounter Care Teams Assembly Machine Operator Relationship Specialty Start Date End Date Imelda Preston MD [address] [place] [address] [email or web address] PCP - General Family Medicine 12/29/22 documented as of this encounter Additional Source Comments The information contained in this document represents components of the legal health record. It is not the complete legal health record.[facility]
--- OUTSIDE RECORDS SUMMARY | 2025-02-11 09:11 | XMS_ITS | Clinical Summary ---
Author Organization [employer] Address [address] [facility] [address] [place] [address] Care Team Providers Care Germination Testing Manager Name Role Phone Imelda Preston MD Primary Care Provider [phone] Kristen Lawson Unavailable Unavailable Allergies No known [...] AM EDT): Staying with a freind on [address] Assessment & Plan (08/08/2022 9:34 AM [...] Most Recently Relevant to Health Maintenance Insurance [facility] STANDARD [employer] MEDICARE REPLACEMENT Care Teams Germination Testing Manager Relationship Specialty Start Date End Date Imelda Preston MD [address] [place] [address] PCP - General Family Medicine 08/08/22 Kristen Lawson Community Health Worker 11/28/22
--- OUTSIDE RECORDS SUMMARY | 2025-02-11 09:11 | XMS_ITS | Encounter Summary ---
Author Organization [facility] Address [address] [place], [place] [id number] Phone Care Team Providers Care Spar Machine Operator Helper Name Role Phone Imelda Preston MD Primary Care Provider + [phone] Reason for Referral * MRI/CAT Scan - Closed Specialty Diagnoses / Procedures Referred By Sukumar tamayo Referred To Contact Radiology Diagnoses Liver lesion Procedures MRI Abdomen CHG MRI, ABDOMEN, COMBO Louise Adam CNP Phone: tel: fax: [email or web address] Referral ID Status Reason Start Date Expiration Date Visits Re quested Visits Authorized [id number] Closed 04/02/2024 09/29/2024 1 1 Encounter Details Date Type Department Care Team (Latest Contact Info) Description 04/02/2024 Transcribe Orders Virtual Department 30 [place] [address] Louise Adam CNP 10 [place] [address] [email or web address] Liver lesion (Primary Dx) Social History Tobacco [...] liver documented in this encounter Care Teams Spar Machine Operator Helper Relationship Specialty Start Date End Date Imelda Preston MD [address] [place] [address] [email or web address] PCP - General Family Medicine 12/29/22 documented as of this encounter Additional Source Comments The information contained in this document represents components of the legal health record. It is not the complete legal health record.[facility]
--- OUTSIDE RECORDS SUMMARY | 2025-02-11 09:11 | XMS_ITS | Encounter Summary ---
Author Organization [facility] Address [address] [place] [address] Phone Care Team Providers Care Contact Lens Blocker And Cutter Name Role Phone Imelda Preston MD Primary Care Provider Encounter Details Date Type Department Care Team (Late st Contact Info) Description 08/17/2023 Procedure Pass [facility], [address] [address] Social History Tobacco Use Types Packs/Day Years [...] on filedocumented in this encounter Care Teams Contact Lens Blocker And Cutter Relationship Specialty Start Date End Date Imelda Preston MD [address] [place] [address] [email or web address] PCP - General Family Medicine 12/29/22 documented as of this encounter Additional Source Comments The information contained in this document represents components of the legal health record. It is not the complete legal health record.[facility]
--- OUTSIDE RECORDS SUMMARY | 2025-02-11 09:11 | XMS_ITS | Encounter Summary ---
Author Organization [facility] Address [address] [facility] [address] [place] [address] Phone Care Team Providers Care Community Association Manager Name Role Phone Imelda Preston MD Primary Care Provider + [phone] Reason for Referral * MRI/CAT Scan - Closed Specialty Diagnoses / Procedures Referred By Sukumar tamayo Referred To Contact Radiology Diagnoses Disease of spinal cord, unspecified Procedures MRI Cervical Spine CHG MRI, CERV SPINE Lobo Silveira PA [address] [facility] [address] [place] [address] Phone: tel: fax: Referral ID Status Reason Start Date Expiration Date Visits Re quested Visits Authorized [id number] Closed 08/01/2024 01/28/2025 1 1 Encounter Details Date Type Department Care Team (Late st Contact Info) Description 08/01/2024 Transcribe Orders Virtual Department 30 [place] [address] Lobo Silveira PA [address] [place] [address] [place] [address] Disease of spinal cord, unspecified (Primary Dx) [...] Primary documented in this encounter Care Teams Community Association Manager Relationship Specialty Start Date End Date Imelda Preston MD 70 [place] [address] [email or web address] PCP - General Family Medicine 12/29/22 documented as of this encounter Additional Source Comments The information contained in this document represents components of the legal health record. It is not the complete legal health record.[facility]
--- OUTSIDE RECORDS SUMMARY | 2025-02-11 09:11 | XMS_ITS | Clinical Summary ---
Author Organization [facility] Address [address] [place], [place] [address] Phone Care Team Providers Care Ton Cylinder Inspector Name Role Phone Imelda Preston MD Primary Care Provider [phone] Allergies No known active allergies Medications No [...] file Insurance MEDICARE PART A & B [facility] AETNA O MEDICARE REPLACEMENT MEDICARE PART A & B [facility] RE[facility] MEDICARE PART A & B [place] & B [id number] [place], [place] [address]HEALTH MEDICARE PART A & B [facility] AETNA O MEDICARE REPLACEMENT MEDICARE PART A & [facility] PPO MEDICARE REPLACEMENT MEDICARE PART A & B [facility] AETNA O MEDICARE REPLACEMENT MEDICARE PART A & B [facility] P[facility] MEDICARE REPLACEMENT Care Teams Ton Cylinder Inspector Relationship Specialty Start Date End Date Imelda Preston MD [address] [place] [address] PCP - General Family Medicine 12/29/22 Additional Source Comments The information contained in this document represents components of the legal health record. It is not the complete legal health record.[facility]
--- OUTSIDE RECORDS SUMMARY | 2025-02-11 09:12 | XMS_ITS | Encounter Summary ---
Author Organization [facility] Address [address] [place] [address] Phone Care Team Providers Care Auto Self Service Station Attendant Name Role Phone Camilla Amaro DO Primary Care Provider + [phone] Imelda Preston MD Primary Care Provider + [phone] Encounter Details Date Type Department Care Team (Late st Contact Info) Description 12/26/2022 Transcribe Orders Virtual Department 30 [place] [address] Imelda Preston MD 70 [place] [address] [email or web address] Left hip pain (Primary Dx) Social History [...] thigh documented in this encounter Care Teams Auto Self Service Station Attendant Relationship Specialty Start Date End Date Camilla Amaro DO PCP - General Family Medicine 06/28/19 12/28/22 Imelda Preston MD [address] [place] [address] PCP - General Family Medicine 12/29/22 documented as of this encounter Additional Source Comments The information contained in this document represents components of the legal health record. It is not the complete legal health record.[facility]
--- OUTSIDE RECORDS SUMMARY | 2025-02-11 09:12 | XMS_ITS | Encounter Summary ---
Author Organization [facility] Address [address] [place] [address] Phone Care Team Providers Care Looper Operator Name Role Phone Imelda Preston MD Primary Care Provider Encounter Details Date Type Department Care Team (Late st Contact Info) Description 01/19/2024 Procedure Pass [facility], Ct Scan - [address] [address] Social History Tobacco Use Types Packs/Day Years [...] on filedocumented in this encounter Care Teams Looper Operator Relationship Specialty Start Date End Date Imelda Preston MD 70 [place] [address] [email or web address] PCP - General Family Medicine 12/29/22 documented as of this encounter Additional Source Comments The information contained in this document represents components of the legal health record. It is not the complete legal health record.[facility]
--- OUTSIDE RECORDS SUMMARY | 2025-02-11 09:12 | XMS_ITS | Encounter Summary ---
Author Organization [facility] Address [address] [place] [address] Phone Care Team Providers Care Carburizer Name Role Phone Imelda Preston MD Primary Care Provider [phone] Encounter Details Date Type Department Care Team (Late st Contact Info) Description 07/25/2023 Ancillary Orders [facility], X-Ray - [address] [address] Imelda Preston MD [address] [place] [address] [email or web address] Chronic left-sided low back pain with left-sided [...] clinician's provided indication for this examination in [facility]:Pain REQUESTED INDICATION: Pain COMPARISON: None FINDINGS: ALIGNMENT: [...] sciatica documented in this encounter Care Teams Carburizer Relationship Specialty Start Date End Date Imelda Preston MD [address] [place] [address] [email or web address] PCP - General Family Medicine 12/29/22 documented as of this encounter Additional Source Comments The information contained in this document represents components of the legal health record. It is not the complete legal health record.[facility]
--- OUTSIDE RECORDS SUMMARY | 2025-02-11 09:12 | XMS_ITS | Encounter Summary ---
Author Organization [facility] Address [address] [place], [place] [address] Phone Care Team Providers Care Electric Tool Repairer Name Role Phone Camilla Amaro DO Primary Care Provider + [phone] Imelda Preston MD Primary Care Provider + [phone] Encounter Details Date Type Department Care Team (Late st Contact Info) Description 07/22/2019 Procedure Pass [facility] Admitting Dept Virtual Department 30 [place] [address] Social History Tobacco Use Types Packs/Day Years [...] on filedocumented in this encounter Care Teams Electric Tool Repairer Relationship Specialty Start Date End Date Camilla Amaro DO PCP - General Family Medicine 06/28/19 12/28/22 Imelda Preston MD [address] [place] [address] PCP - General Family Medicine 12/29/22 documented as of this encounter Additional Source Comments The information contained in this document represents components of the legal health record. It is not the complete legal health record.[facility]
== END 2025-02-10 08:24 | disposition home or self-care (01) ==
LOC: HO.HOSX 08:23
PROVIDERS: Visit Provider Physician Assistant
DX: Z98.1 Arthrodesis status (principal)
CPT/HCPCS: 72050; 99212

== ENCOUNTER 2025-02-10 13:42 | Outpatient (AMB) | payer MEDICARE, MEDICAID, SELFPAY ==
--- NOTE | 2025-02-10 14:03 | HO.SPINEOV ---
Intake Visit Reasons: 2nd post op with Xrays Intake Note: Mr. Morales is here today for his 2nd post-op visit with x-rays. Universal Banker Required: No Allergies Opioids - Morphine Analogues Adverse Reaction (Severe, Verified 12/30/24 11:54) Nausea Assessment & Plan Assessment & Plan (1) S/P cervical spinal fusion: Code(s): Z98.1 - Arthrodesis status Category: Surgical Plan Procedure: C5-7 ACDF Giles is a pleasant 59 year old male who underwent C5-7 ACDF 12/05/[address] Dean. He comes in today for his 2nd postoperative visit. He has overall done very well since his surgery. He reports complete resolution of his preoperative pain. He is able to utilize his upper extremities at nearly full strength capacity without issue. He obtained a set of dynamic cervical spine x-rays during this visit which we reviewed together in my office. His x-ray imaging shows stable placement of his surgical construct with no notable changes from fluoroscopy images which we also reviewed. We discussed the postoperative healing course, and I answered any questions that he had. No new neurological deficits. The patient ambulates well and rises from a seated position without difficulty. His anterior incision site is closed and well healed. At the conclusion of this visit Giles reported that during his initial consult with Rustam & Dr. Dean they discussed the need for lumbar spine surgery once his cervical concerns were addressed. He would like to make a follow up appointment with Dr. Dean to discuss the potential for lumbar spine surgery. I encouraged him to make this appointment on his way out today. Malick Dean MD,PhD [facility] Orders: Orders XR cervical spine 4V Today Z98.1 - Arthrodesis status Coding Level of Care Code Global (01066) Diagnoses S/P cervical spinal fusion Z98.1
--- OUTSIDE RECORDS SUMMARY | 2025-02-10 16:05 | XMS_ITS | Clinical Summary ---
Author Organization [facility] Address [address] [place], [place] [id number] Phone Care Team Providers Care Street Light Repairer Name Role Phone Imelda Preston MD Primary [...] file Insurance MEDICARE PART A & B [facility] AETNA O MEDICARE REPLACEMENT MEDICARE PART A & B [facility] RE[facility] MEDICARE PART A & B [place] A & B [id number] [place], [place] [address]HEALTH MEDICARE PART A & B [facility] AETNA O MEDICARE REPLACEMENT MEDICARE PART A & B [facility] MED[facility] PART A & B [facility] AETNA PPO MEDICARE REPLACEMENT MEDICARE PART A & B [facility] AETNA O MEDICARE REPLACEMENT MEDICARE PART A & B [facility] A[facility]NA PPO MEDICARE REPLACEMENT Care Teams Street Light Repairer Relationship Specialty Start Date End Date Imelda Preston MD [address] [facility] [place] [address] PCP - General Family Medicine 12/29/22 Additional Source Comments The information contained in this document represents components of the legal health record. It is not the complete legal health record.[facility]
--- OUTSIDE RECORDS SUMMARY | 2025-02-10 16:05 | XMS_ITS | Encounter Summary ---
Author Organization [facility] Address [address] [place], [place] [address] Phone Care Team Providers Care Deputy Felony Clerk Name Role Phone Imelda Preston MD Primary Care Provider + [phone] Reason for Referral * MRI/CAT Scan - Closed Specialty Diagnoses / Procedures Referred By Sukumar tamayo Referred To Contact Radiology Diagnoses Constipation, unspecified constipation type Periumbilical abdominal pain Change in bowel habits Procedures CT Abdomen/Pelvis CHG CT SCAN,ABDOMENT AND PELVIS,W CONTRAST Louise Adam CNP Phone: tel: fax: [email or web address] Referral ID Status Reason Start Date Expiration Date Visits Re quested Visits Authorized [id number] Closed 01/19/2024 07/17/2024 1 1 Encounter Details Date Type Department Care Team (Latest Contact Info) Description 01/19/2024 Transcribe Orders Virtual Department [address] [place] [address] Louise Adam CNP [address] [place] [address] [email or web address] Constipation, unspecified constipation type (Primary Dx); Periumbilical abdominal pain; Change in bowel habits Social History Tobacco Use Types Packs/Day Years [...] on file Sexual Orientation Not on file documented as of this encounter Plan of Treatment Not on file documented as of this encounter Results * CT ABDOMEN/PELVIS WITH CONTRAST (03/26/2024 5:57 PM EST) MGB IMG RECOMMENDATION COMMENT Indeterminate hepatic hypodensities up to 1.2 cm; Differential: hepatic up to 1.2 cm hemangiomas; Differential: hepatic up to 1.2 cm cysts [facility] Anatomical Region Laterality Modality Abdomen, Pelvis Computed Tomogra phy 04/01/2024 1:49 PM EST Impressions 04/01/2024 2:02 PM EST *No findings to explain reported symptoms. *Indeterminate hepatic hypodensities measuring up to 1.2 cm, technically indeterminate, may represent hemangiomas and/or cysts. RECOMMENDATION: *Consider liver MRI to confirm. Narrative 04/01/2024 2:[address] ABDOMEN/PELVIS WITH CONTRAST Referring clinician's provided indication for this examination in Epic: Outside Radiology Order; constipation TECHNIQUE: Multidetector-row CT of the abdomen and pelvis was performed after administration of intravenous contrast using tailored dose modulation techniques. Images were reconstructed in the axial, coronal, and sagittal planes. COMPARISON: MRI LUMBAR SPINE (NEURO) WITHOUT CONTRAST ; CT CHEST C+ FINDINGS: Lower chest: Clear lung bases. No pleural effusions. Liver: Several well-defined hepatic hypodensities measuring up to 1.1 cm, likely cysts. Indeterminate ill-defined 1.2 cm hepatic hypodensity (2:15) and 1.0 cm segment 2/3 hypodensity (2:16). Biliary: No biliary ductal dilation. Spleen: No splenomegaly. No focal lesions. Pancreas: No masses or ductal dilatation. Adrenal glands: No nodules. Kidneys/ureters: No solid masses or hydronephrosis. No stones. Bowel: No obstruction. No bowel wall thickening. Mild colonic stool. Normal appendix. Peritoneum/retroperitoneum: No masses, free air, or fluid. Lymph nodes: No lymphadenopathy. Pelvic organs/bladder: No masses. Vessels: No abdominal aortic aneurysm. Mild aortic and branch vessel atherosclerotic calcifications. Bones/soft tissues: No destructive osseous lesions. Bilateral hydroceles. Procedure Note Kaila Ibarra MD - 04/01/2024 CT ABDOMEN/PELVIS WITH CONTRAST Referring clinician's provided indication for this examination in Psychiatric:Outside Radiology Order; constipation TECHNIQUE: Multidetector-row CT of the abdomen and pelvis was performedafter administration of intravenous contrast using tailored dosemodulation techniques. Images were reconstructed in the axial, coronal,and sagittal planes. COMPARISON: MRI LUMBAR SPINE (NEURO) WITHOUT CONTRAST ; CTCHEST C+ FINDINGS: Lower chest: Clear lung bases. No pleural effusions. Liver: Several well-defined hepatic hypodensities measuring up to 1.1 cm,likely cysts. Indeterminate ill-defined 1.2 cm hepatic hypodensity (2:15)and 1.0 cm segment 2/3 hypodensity (2:16). Biliary: No biliary ductal dilation. Spleen: No splenomegaly. No focal lesions. Pancreas: No masses or ductal dilatation. Adrenal glands: No nodules. Kidneys/ureters: No solid masses or hydronephrosis. No stones. Bowel: No obstruction. No bowel wall thickening. Mild colonic stool.Normal appendix. Peritoneum/retroperitoneum: No masses, free air, or fluid. Lymph nodes: No lymphadenopathy. Pelvic organs/bladder: No masses. Vessels: No abdominal aortic aneurysm. Mild aortic and branch vesselatherosclerotic calcifications. Bones/soft tissues: No destructive osseous lesions. Bilateralhydroceles. IMPRESSION: *No findings to explain reported symptoms. *Indeterminate hepatic hypodensities measuring up to 1.2 cm, technicallyindeterminate, may represent hemangiomas and/or cysts. RECOMMENDATION: *Consider liver MRI to confirm. Louise Adam CNP IMG CT ABD/PELVIS Final Re sult documented in this encounter Visit Diagnoses Diagnosis Constipation, unspecified constipation type- Primary Periumbilical abdominal pain Abdominal pain, periumbilic Change in bowel habits Other symptoms involving digestive system documented in this encounter Care Teams Deputy Felony Clerk Relationship Specialty Start Date End Date Imelda Preston MD [address] [place] [address] PCP - General Family Medicine 12/29/22 documented as of this encounter Additional Source Comments The information contained in this document represents components of the legal health record. It is not the complete legal health record.[facility]
--- OUTSIDE RECORDS SUMMARY | 2025-02-10 16:05 | XMS_ITS | Encounter Summary ---
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 Procedures MRI Lumbar Spine Imelda Preston MD Phone: tel: fax: [email or web address] Referral ID Status Reason Start Date Expiration Date Visits Re quested Visits Authorized [id number] Closed 08/17/2023 08/16/2024 1 1 Encounter Details Date Type Department Care Team (Latest Contact Info) Description 08/15/2023 Transcribe Orders Virtual Department [address] [place] [address] Imelda Preston MD [address] [place] [address] [email or web address] Arthritis of right hip (Primary Dx); 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 Multilevel spinal canal stenoses, mild to moderate at L1-2, L2-3, L3-4, and L4- 5. Multilevel neuroforaminal stenoses, severe left and moderate to severe right at L4-5 and L5-S1, moderate left and mild right at L2-3, and mild to moderate at L3-4. Endplate marrow edema at L5-S1, may reflect an axial pain generator. Narrative 09/22/2023 3:01 PM EDT MRI LUMBAR SPINE (NEURO) WITHOUT CONTRAST REQUESTED INDICATION: Outside Radiology Order; neurologic disorder degeneration lumbar intervertebral disc TECHNIQUE: MRI LUMBAR SPINE (NEURO) WITHOUT CONTRAST COMPARISON: XR LUMBOSACRAL SPINE 2-3 VIEWS FINDINGS: ALIGNMENT: Straightening of the lumbar lordosis. 2 mm L2-3 retrolisthesis. MARROW: No compression fracture or marrow replacing lesion. DISCS: Disc desiccation L1-S1. Endplate marrow edema at L5-S1. CONUS: Normal appearance and terminates at L2. PARASPINAL SOFT TISSUES: Within normal limits. FINDINGS BY LEVEL: T12-L1:Facet arthropathy and thickening of ligamentum flavum. No spinal canal or neuroforaminal stenosis. L1-2: Diffuse disc bulge, posterior annular fissure, facet arthropathy, and thickening of ligamentum flavum. Mild to moderate spinal canal stenosis. Mild neuroforaminal stenosis. L2-3: Diffuse disc bulge eccentric to the left, facet arthropathy, and thickening of ligamentum flavum. Diffuse disc bulge contacts the transiting L3 nerve roots. Mild to moderate spinal canal stenosis. Moderate left and mild right neuroforaminal stenosis. L3-4: Diffuse disc bulge contacting the transiting L4 nerve roots, facet arthropathy, and thickening of ligamentum flavum. Mild to moderate spinal canal stenosis. Mild to moderate neuroforaminal stenosis. L4-5: Diffuse disc bulge, central disc extrusion, facet arthropathy, and thickening of ligamentum flavum. Mild to moderate spinal canal stenosis. Severe left and moderate to severe right neuroforaminal stenosis. L5-S1: Diffuse disc bulge, central disc extrusion, facet arthropathy, and thickening of ligamentum flavum. No spinal canal stenosis. Severe left and moderate to severe right neuroforaminal stenosis. Procedure Note Sharmin Nguyen MD - 09/22/2023 MRI LUMBAR SPINE (NEURO) WITHOUT CONTRAST REQUESTED INDICATION: Outside Radiology Order; neurologic disorderdegeneration lumbar intervertebral disc TECHNIQUE: MRI LUMBAR SPINE (NEURO) WITHOUT CONTRAST COMPARISON: XR LUMBOSACRAL SPINE 2-3 VIEWS FINDINGS: ALIGNMENT: Straightening of the lumbar lordosis. 2 mm L2-3retrolisthesis. MARROW: No compression fracture or marrow replacing lesion. DISCS: Disc desiccation L1-S1. Endplate marrow edema at L5-S1. CONUS: Normal appearance and terminates at L2. PARASPINAL SOFT TISSUES: Within normal limits. FINDINGS BY LEVEL: T12-L1:Facet arthropathy and thickening of ligamentum flavum. No spinalcanal or neuroforaminal stenosis. L1-2: Diffuse disc bulge, posterior annular fissure, facet arthropathy,and thickening of ligamentum flavum. Mild to moderate spinal canalstenosis. Mild neuroforaminal stenosis. L2-3: Diffuse disc bulge eccentric to the left, facet arthropathy, andthickening of ligamentum flavum. Diffuse disc bulge contacts thetransiting L3 nerve roots. Mild to moderate spinal canal stenosis.Moderate left and mild right neuroforaminal stenosis. L3-4: Diffuse disc bulge contacting the transiting L4 nerve roots, facetarthropathy, and thickening of ligamentum flavum. Mild to moderate spinalcanal stenosis. Mild to moderate neuroforaminal stenosis. L4-5: Diffuse disc bulge, central disc extrusion, facet arthropathy, andthickening of ligamentum flavum. Mild to moderate spinal canal stenosis.Severe left and moderate to severe right neuroforaminal stenosis. L5-S1: Diffuse disc bulge, central disc extrusion, facet arthropathy, andthickening of ligamentum flavum. No spinal canal stenosis. Severe left andmoderate to severe right neuroforaminal stenosis. IMPRESSION: Multilevel posterior disc bulges with disc extrusions at L4-5 and L5-S1. Multilevel spinal canal stenoses, mild to moderate at L1-2, L2-3, L3-4,and L4-5. Multilevel neuroforaminal stenoses, severe left and moderate to severeright at L4-5 and L5-S1, moderate left and mild right at L2-3, and mild tomoderate at L3-4. Endplate marrow edema at L5-S1, may reflect an axial pain generator. 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 It is not the complete legal health record.[facility]
--- OUTSIDE RECORDS SUMMARY | 2025-02-10 16:05 | XMS_ITS | Encounter Summary ---
Author Organization [facility] Address [address] [place] [address] Phone Care Team Providers Care Ship Painter Helper Name Role Phone Imelda Preston MD Primary Care Provider + [phone] Reason for Referral * MRI/CAT Scan - Closed Specialty Diagnoses / Procedures Referred By Sukumar tamayo Referred To Contact Radiology Diagnoses Disease of spinal cord, unspecified Procedures MRI Cervical Spine CHG MRI, CERV SPINE Lobo Silveira PA [address] [facility] [address] [place] [address] Phone: tel: fax: Referral ID Status Reason Start Date Expiration Date Visits Re quested Visits Authorized [id number] Closed 08/01/2024 01/28/2025 1 1 Encounter Details Date Type Department Care Team (Late st Contact Info) Description 08/01/2024 Transcribe Orders Virtual Department [address] [place] [address] Lobo Silveira PA [address] [place] [address] [place] [phone] Disease of spinal cord, unspecified (Primary Dx) Social History Tobacco Use Types Packs/Day Years [...] as of this encounter Plan of Treatment Scheduled Orders Name Type Priority Associated Diagnoses Orde r Schedule MRI Cervical Spine Imaging Routine Disease of spinal cord, unspecified Expected: 08/01/2024, Expires: 08/01/2025 documented as of this encounter Visit Diagnoses Diagnosis Disease of spinal cord, unspecified- Primary documented in this encounter Care Teams Ship Painter Helper Relationship Specialty Start Date End Date Imelda Preston MD [address] [place] [address] [email or web address] PCP - General Family Medicine 12/29/22 documented as of this encounter Additional Source Comments The information contained in this document represents components of the legal health record. It is not the complete legal health record.[facility]
--- OUTSIDE RECORDS SUMMARY | 2025-02-10 16:05 | XMS_ITS | Encounter Summary ---
Author Organization [facility] Address [address] [place] [phone] Phone Care Team Providers Care Soap Boiler Name Role Phone Imelda Preston MD Primary Care Provider Encounter Details Date Type Department Care Team (Late st Contact Info) Description 08/17/2023 Procedure Pass [facility], [address] [address] Social History Tobacco Use Types Packs/Day Years [...] documented as of this encounter Visit Diagnoses Not on filedocumented in this encounter Care Teams Soap Boiler Relationship Specialty Start Date End Date Imelda Preston MD [address] [place] [address] [email or web address] PCP - General Family Medicine 12/29/22 documented as of this encounter Additional Source Comments The information contained in this document represents components of the legal health record. It is not the complete legal health record.[facility]
--- OUTSIDE RECORDS SUMMARY | 2025-02-10 16:06 | XMS_ITS | Encounter Summary ---
Author Organization [facility] Address [address] [place] [address] Phone Care Team Providers Care Binding Folder Machine Name Role Phone Imelda Preston MD Primary Care Provider [phone] Encounter Details Date Type Department Care Team (Late st Contact Info) Description 07/25/2023 Ancillary Orders [facility], X-Ray - [address] [address] Imelda Preston MD [address] [place] [address] [email or web address] Chronic left-sided low back pain with left-sided sciatica (Primary Dx) Social History Tobacco Use Types [...] documented as of this encounter Results * XR LUMBOSACRAL SPINE 2-3 VIEWS (07/25/2023 1:13 PM EDT) Anatomical Region Laterality Modality L-spine Computed Radiogr aphy 07/28/2023 3:19 PM EDT Impressions 07/28/2023 3:21 PM EDT Severe lumbar spine degenerative change. Narrative 07/28/2023 3:21 PM EDT XR LUMBOSACRAL SPINE 2-3 VIEWS Referring clinician's provided indication for this examination in Epic: Pain REQUESTED INDICATION: Pain COMPARISON: None FINDINGS: ALIGNMENT: 5 mm L1-L2 retrolisthesis. 7 mm L2-3 retrolisthesis. 5 mm L4-5 retrolisthesis. VERTEBRAE: Vertebral body heights preserved. DISCS: Disc height loss and endplate sclerosis and marginal osteophytes at all levels. FACETS: Facet arthropathy L3-S1. PARASPINAL SOFT TISSUES: Mild to moderate aortic vascular calcification. Partially visualized right hip degenerative change. Procedure Note Sharmin Nguyen MD - 07/28/2023 XR LUMBOSACRAL SPINE 2-3 VIEWS Referring clinician's provided indication for this examination in [facility]:Pain REQUESTED INDICATION: Pain COMPARISON: None FINDINGS: ALIGNMENT: 5 mm L1-L2 retrolisthesis. 7 mm L2-3 retrolisthesis. 5 mm L4-5retrolisthesis. VERTEBRAE: Vertebral body heights preserved. DISCS: Disc height loss and endplate sclerosis and marginal osteophytes atall levels. FACETS: Facet arthropathy L3-S1. PARASPINAL SOFT TISSUES: Mild to moderate aortic vascular calcification.Partially visualized right hip degenerative change. IMPRESSION: Severe lumbar spine degenerative change. Imelda Preston MD IMG XR SPINE Final Result documented in this encounter Visit Diagnoses Diagnosis Chronic left-sided low back pain with left-sided sciatica- Primary Chronic left-sided low back pain with left-sided sciatica documented in this encounter Care Teams Binding Folder Machine Relationship Specialty Start Date End Date Imelda Preston MD [address] [place] [address] [email or web address] PCP - General Family Medicine 12/29/22 documented as of this encounter Additional Source Comments The information contained in this document represents components of the legal health record. It is not the complete legal health record.[facility]
--- OUTSIDE RECORDS SUMMARY | 2025-02-10 16:06 | XMS_ITS | Encounter Summary ---
Author Organization [facility] Address [address] [place] [address] Phone Care Team Providers Care Cafe Worker Name Role Phone Imelda Preston MD Primary Care Provider Encounter Details Date Type Department Care Team (Late st Contact Info) Description 01/19/2024 Procedure Pass [facility], Ct Scan - [address] [address] Social History Tobacco Use Types Packs/Day Years [...] on filedocumented in this encounter Care Teams Cafe Worker Relationship Specialty Start Date End Date Imelda Preston MD [address] [place] [address] [email or web address] PCP - General Family Medicine 12/29/22 documented as of this encounter Additional Source Comments The information contained in this document represents components of the legal health record. It is not the complete legal health record.[facility]
--- OUTSIDE RECORDS SUMMARY | 2025-02-10 16:06 | XMS_ITS | Encounter Summary ---
Author Organization [facility] Address [address] [place], [place] [address] Phone Care Team Providers Care Estate Administrator Name Role Phone Camilla Amaro DO Primary Care Provider + [phone] Imelda Preston MD Primary Care Provider + [phone] Encounter Details Date Type Department Care Team (Late st Contact Info) Description 07/22/2019 Procedure Pass [facility] Admitting Dept Virtual Department [address] [place] [address] Social History Tobacco Use Types Packs/Day Years Used Date Smoking Tobacco: Every Day Cigarettes Smokeless Tobacco: Never Alcohol Use Standard Drinks/Week Comments Not Currently 0 (1 standard drink = 0.6 oz pur e alcohol) Sex and Gender Information Value Date Recorded Sex Assigned at Not on file Legal Sex Male 9:37 PM EDT Gender Identity Not on file Sexual Orientation Not on file documented as of this encounter Plan of Treatment Not on file documented as of this encounter Visit Diagnoses Not on filedocumented in this encounter Care Teams Estate Administrator Relationship Specialty Start Date End Date Camilla Amaro DO PCP - General Family Medicine 06/28/19 12/28/22 Imelda Preston MD [address] [place] [address] PCP - General Family Medicine 12/29/22 documented as of this encounter Additional Source Comments The information contained in this document represents components of the legal health record. It is not the complete legal health record.[facility]
--- OUTSIDE RECORDS SUMMARY | 2025-02-10 16:06 | XMS_ITS | Encounter Summary ---
Author Organization [facility] Address [address] [place], [place] [id number] Phone Care Team Providers Care Warper Fixer Name Role Phone Imelda Preston MD Primary Care Provider + [phone] Reason for Referral * MRI/CAT Scan - Closed Specialty Diagnoses / Procedures Referred By Sukumar tamayo Referred To Contact Radiology Diagnoses Liver lesion Procedures MRI Abdomen CHG MRI, ABDOMEN, COMBO Louise Adam CNP Phone: tel: fax: [email or web address] Referral ID Status Reason Start Date Expiration Date Visits Re quested Visits Authorized [id number] Closed 04/02/2024 09/29/2024 1 1 Encounter Details Date Type Department Care Team (Latest Contact Info) Description 04/02/2024 Transcribe Orders Virtual Department [address] [place] [address] Louise Adam CNP [address] [place] [address] [email or web address] Liver lesion (Primary Dx) Social History Tobacco Use Types [...] as of this encounter Results * MRI ABDOMEN (LIVER) WITH AND WITHOUT CONTRAST (04/16/2024 3:48 PM EST) Anatomical Region Laterality Modality Abdomen Magnetic Resonan ce 04/18/2024 9:53 AM EST Impressions 04/18/2024 10:09 AM EST 1. Multiple nonenhancing fluid bright foci throughout the liver in keeping with cysts and/or hamartomas. 2. No suspicious liver lesion. 3. No concerning incidental abnormality. Narrative 04/18/2024 10:09 AM EST MRI ABDOMEN (LIVER) WITH AND WITHOUT CONTRAST Referring clinician's provided indication for this examination in Epic: Outside Radiology Order; liver lesion Additional clinical information obtained from the EMR: Recent CT assessment of the abdomen and pelvis obtained assessing abdominal pain/constipation. Well-defined liver hypodensities noted measuring up to 1.1 cm, likely cysts as well as indeterminate 1.2 cm hepatic hypodensity within left lobe of the liver, segments 2 and 3. TECHNIQUE: Multiplanar MR imaging of the abdomen was performed using T1, T2, fat saturated, and diffusion weighted techniques. Dynamic multiphase imaging was also performed after administration of an intravenous gadolinium contrast agent. COMPARISON: Contrast-enhanced CT abdomen and pelvis 03/26/2024. FINDINGS: Lower Chest: Normal. No effusions. Liver: Multifocal scattered round to oval fluid bright nonenhancing foci are identified, largest within the left lobe medial segment (segment 4A and B) superior medially, posterior midportion and posterior inferiorly measuring 1.1, 1.0 and 1.3 cm maximum diameter. Smaller lesions defined within the left lobe lateral segment superiorly and inferiorly (segment 2 and to a lesser extent segment 3) and within right lobe of the liver lower and upper portions anterior and posterior segments. There is no suspicious enhancing liver lesion. No restricted diffusion. No surface irregularity or volume redistribution. Normal portal vein and hepatic vein enhancement. Biliary: Fluid-filled, nondistended gallbladder with no discrete filling defects/defects or wall thickening. No biliary ductal dilatation. Spleen: Normal. No splenomegaly or focal lesions. Pancreas: Normal. No masses or ductal dilatation. Adrenal Glands: Normal. No nodules. Kidneys/Ureters: Kidneys are normal in size, shape and signal intensity. No hydronephrosis or suspicious mass. Fluid bright foci within the lower kidney bilaterally may reflect fluid within the collecting systems or small cysts. Normal caliber ureters. Bowel: Normal. No dilatation or wall thickening. Peritoneum/Retroperitoneum: Normal. No masses or fluid. Lymph Nodes: Normal. No lymphadenopathy. Vessels: Normal. No abdominal aortic aneurysm. Bones/Soft Tissues: Degenerative changes throughout the spine. Disc desiccation, disc space narrowings and spurring. No aggressive focal bony lesion identified. Procedure Note Oskar Bagley MD - 04/18/2024 MRI ABDOMEN (LIVER) WITH AND WITHOUT CONTRAST Referring clinician's provided indication for this examination in Epic:Outside Radiology Order; liver lesion Additional clinical information obtained from the EMR: Recent CTassessment of the abdomen and pelvis obtained assessing abdominalpain/constipation. Well-defined liver hypodensities noted measuring up to1.1 cm, likely cysts as well as indeterminate 1.2 cm hepatic hypodensitywithin left lobe of the liver, segments 2 and 3. TECHNIQUE: Multiplanar MR imaging of the abdomen was performed using T1,T2, fat saturated, and diffusion weighted techniques. Dynamic multiphaseimaging was also performed after administration of an intravenousgadolinium contrast agent. COMPARISON: Contrast-enhanced CT abdomen and pelvis 03/26/2024. FINDINGS: Lower Chest: Normal. No effusions. Liver: Multifocal scattered round to oval fluid bright nonenhancing fociare identified, largest within the left lobe medial segment (segment 4Aand B) superior medially, posterior midportion and posterior inferiorlymeasuring 1.1, 1.0 and 1.3 cm maximum diameter. Smaller lesions definedwithin the left lobe lateral segment superiorly and inferiorly (segment 2and to a lesser extent segment 3) and within right lobe of the liver lowerand upper portions anterior and posterior segments. There is no suspiciousenhancing liver lesion. No restricted diffusion. No surface irregularityor volume redistribution. Normal portal vein and hepatic veinenhancement. Biliary: Fluid-filled, nondistended gallbladder with no discrete fillingdefects/defects or wall thickening. No biliary ductal dilatation. Spleen: Normal. No splenomegaly or focal lesions. Pancreas: Normal. No masses or ductal dilatation. Adrenal Glands: Normal. No nodules. Kidneys/Ureters: Kidneys are normal in size, shape and signal intensity.No hydronephrosis or suspicious mass. Fluid bright foci within the lowerkidney bilaterally may reflect fluid within the collecting systems orsmall cysts. Normal caliber ureters. Bowel: Normal. No dilatation or wall thickening. Peritoneum/Retroperitoneum: Normal. No masses or fluid. Lymph Nodes: Normal. No lymphadenopathy. Vessels: Normal. No abdominal aortic aneurysm. Bones/Soft Tissues: Degenerative changes throughout the spine. Discdesiccation, disc space narrowings and spurring. No aggressive focal bonylesion identified. IMPRESSION: 1. Multiple nonenhancing fluid bright foci throughout the liver inkeeping with cysts and/or hamartomas. 2. No suspicious liver lesion. 3. No concerning incidental abnormality. Louise Adam CNP IM MR ABDOMEN Final Resu lt documented in this encounter Visit Diagnoses Diagnosis Liver lesion- Primary Other specified disorders of liver Liver lesion Other specified disorders of liver documented in this encounter Care Teams Warper Fixer Relationship Specialty Start Date End Date Imelda Preston MD [address] [place] [address] [email or web address] PCP - General Family Medicine 12/29/22 documented as of this encounter Additional Source Comments The information contained in this document represents components of the legal health record. It is not the complete legal health record.[facility]
--- OUTSIDE RECORDS SUMMARY | 2025-02-10 16:06 | XMS_ITS | Encounter Summary ---
Author Organization [facility] Address [address] [place] [address] Phone Care Team Providers Care Street Commissioner Name Role Phone Camilla Amaro DO Primary Care Provider + [phone] Imelda Preston MD Primary Care Provider + [phone] Encounter Details Date Type Department Care Team (Late st Contact Info) Description 12/26/2022 Transcribe Orders Virtual Department [address] [place] [address] Imelda Preston MD [address] [place] [address] [email or web address] Left hip pain (Primary Dx) Social History Tobacco Use Types [...] as of this encounter Results * XR HIP 2 VW LEFT PLUS PELVIS (05/26/2023 9:34 AM EST) Anatomical Region Laterality Modality Hip Left Computed Radiogr aphy 05/26/2023 11:5 4 AM EST Impressions 05/26/2023 11:55 AM EST Mild hip osteoarthritis. Partially visualized lumbar spine degenerative change. Narrative 05/26/2023 11:55 AM EST XR HIP 2 VW LEFT PLUS PELVIS Referring clinician's provided indication for this examination in Epic: Outside Radiology Order; left hip pain COMPARISON: None FINDINGS: PELVIS: Pelvic ring intact. No displaced fracture. Degenerative changes of the lower lumbar spine, sacroiliac joints, and pubic symphysis. RIGHT HIP: Mild hip joint space narrowing with marginal spurring. Questionable cystic changes in the lateral acetabular rim. LEFT HIP: Mild hip joint space narrowing with marginal spurring. Questionable cystic changes in the lateral acetabular rim. Procedure Note Sharmin Nguyen MD - 05/26/2023 XR HIP 2 VW LEFT PLUS PELVIS Referring clinician's provided indication for this examination in Epic:Outside Radiology Order; left hip pain COMPARISON: None FINDINGS: PELVIS: Pelvic ring intact. No displaced fracture. Degenerative changes ofthe lower lumbar spine, sacroiliac joints, and pubic symphysis. RIGHT HIP: Mild hip joint space narrowing with marginal spurring.Questionable cystic changes in the lateral acetabular rim. LEFT HIP: Mild hip joint space narrowing with marginal spurring.Questionable cystic changes in the lateral acetabular rim. IMPRESSION: Mild hip osteoarthritis. Partially visualized lumbar spine degenerative change. Imelda Preston MD IMG XR PELVIS Final Result documented in this encounter Visit Diagnoses Diagnosis Left hip pain- Primary Pain in joint, pelvic region and thigh documented in this encounter Care Teams Street Commissioner Relationship Specialty Start Date End Date Camilla Amaro DO PCP - General Family Medicine 06/28/19 12/28/22 Imelda Preston MD [address] [place] [address] PCP - General Family Medicine 12/29/22 documented as of this encounter Additional Source Comments The information contained in this document represents components of the legal health record. It is not the complete legal health record.[facility]
--- OUTSIDE RECORDS SUMMARY | 2025-02-10 16:06 | XMS_ITS | Encounter Summary ---
Author Organization [facility] Address [address] [place] [address] Phone Care Team Providers Care Resistance Machine Welder Setter Name Role Phone Imelda Preston MD Primary Care Provider Encounter Details Date Type Department Care Team (Late st Contact Info) Description 04/02/2024 Procedure Pass [facility], [address] [address] Social History Tobacco Use Types Packs/Day Years [...] on filedocumented in this encounter Care Teams Resistance Machine Welder Setter Relationship Specialty Start Date End Date Imelda Preston MD [address] [place] [address] [email or web address] PCP - General Family Medicine 12/29/22 documented as of this encounter Additional Source Comments The information contained in this document represents components of the legal health record. It is not the complete legal health record.[facility]
--- OUTSIDE RECORDS SUMMARY | 2025-02-10 16:06 | XMS_ITS | Clinical Summary ---
Author Organization [employer] Address [address] [facility] [address] [place] [address] Care Team Providers Care Cad Developer Name Role Phone Imelda Preston MD Primary Care Provider [phone] Kristen Lawson Unavailable Unavailable Allergies No known [...] AM EDT): Staying with a freind on [employer] [address] Assessment & Plan (08/08/2022 9:34 AM [...] 12/05/1986 Zoster Vaccines (1 of 2) 12/05/2017 Tobacco Screening 11/19/2024 11/20/2023 COVID-19 Vaccine (1 - 2023-2 5 season) 2025 Influenza Vaccine (#1) 2025 Lipid Panel 07/24/2028 [...] to Health Maintenance Insurance [facility] STANDARD [employer] MEDICARE REPLACEMENT Care Teams Cad Developer Relationship Specialty Start Date End Date Imelda Preston MD [address] [place] [address] PCP - General Family Medicine 08/08/22 Kristen Lawson Community Health Worker 11/28/22
== END 2025-02-10 14:15 | disposition home or self-care (01) ==
LOC: HO.HNS 13:43
PROVIDERS: Visit Provider Physician Assistant
DX: Z98.1 Arthrodesis status (principal)
CPT/HCPCS: 99024

== ENCOUNTER → 2025-02-10 13:44 | Outpatient (BNV) | payer MEDICARE, MEDICAID, SELFPAY | PROVIDERS: Visit Provider Radiology Diagnostic Radiology | DX: M43.22 Fusion of spine, cervical region (principal); M47.812 Spondylosis without myelopathy or radiculopathy, cervical region; Z98.1 Arthrodesis status | CPT/HCPCS: 72050 ==

== ENCOUNTER 2025-03-07 12:58 | Outpatient (AMB) | payer MEDICARE, MEDICAID, SELFPAY ==
--- NOTE | 2025-03-07 13:10 | A.SPINEOV_ITS ---
Intake Visit Reasons: Discuss the potential for lumbar sx Intake Note: Mr. Morales is here today to Discuss surgery. Waiter/Waitress First Class Required: No Allergies Opioids - Morphine Analogues Adverse Reaction (Severe, Verified 12/30/24 11:54) Nausea Assessment & Plan Assessment & Plan (1) Lumbar stenosis with neurogenic claudication: Code(s): M48.062 - Spinal stenosis, lumbar region with neurogenic claudication Category: Medical Plan Dear colleague, On 03/07/2025, I saw Giles Morales. He was originally seen for left-sided neurogenic claudication symptoms due to severe spinal stenosis L4-5 and severe left L4 foraminal stenosis. It was noted during the initial exam that he has signed of cervical myelopathy. Imaging revealed spinal cord compression and he underwent an anterior diskectomy and fusion to address the cervical myelopathic symptoms. He recovered well. The neck pain and myelopathic symptoms have disappeared. However, he continues to suffer from the neurogenic claudication symptoms. Can hardly walk or stand before he has to sit down. Now the neck is taken care of, I offered him a left L4-5 decompression, including an L4 foraminotomy. He is scheduled for April 02, 2025. Of note, he discontinued smoking before the cervical procedure and is still smoke free. I spent 25 minutes in his consult review imaging and discussing plan of care. Carter Dean MD, PhD Spine Fellowship Trained Neurosurgeon Director, [facility] Coding Level of Care Code Est Pt Level 3 (80863) Diagnoses Lumbar stenosis with neurogenic claudication M48.062
--- OUTSIDE RECORDS SUMMARY | 2025-03-07 14:05 | XMS_ITS | Clinical Summary ---
Author Organization [facility] Address [address] [place], [place] [address] Phone Care Team Providers Care Engine Cleaner Name Role Phone Imelda Preston MD Primary [...] file Insurance MEDICARE PART A & B [facility] AETNA O MEDICARE REPLACEMENT MEDICARE PART A & B [facility] RE[facility] MEDICARE PART A & B [place] A & B [id number] [place], [place] [address]HEALTH MEDICARE PART A & B [facility] AETNA O MEDICARE REPLACEMENT MEDICARE PART [facility] & [facility] PPO MEDICARE REPLACEMENT MEDICARE PART A & B [facility] AETNA O MEDICARE REPLACEMENT MEDICARE PART A & [facility] MEDICARE REPLACEMENT Care Teams Engine Cleaner Relationship Specialty Start Date End Date Imelda Preston MD [address] [place] [address] PCP - General Family Medicine 12/29/22 Additional Source Comments The information contained in this document represents components of the legal health record. It is not the complete legal health record.[facility]
--- OUTSIDE RECORDS SUMMARY | 2025-03-07 14:06 | XMS_ITS | Encounter Summary ---
Author Organization [facility] Address [address] [place], [place] [address] Phone Care Team Providers Care Crusher And Blender Operator Name Role Phone Imelda Preston MD Primary Care Provider + [phone] Reason for Referral * MRI/CAT Scan - Closed Specialty Diagnoses / Procedures Referred By Sukumar tamayo Referred To Contact Radiology Diagnoses Constipation, unspecified constipation type Periumbilical abdominal pain Change in bowel habits Procedures CT Abdomen/Pelvis CHG CT SCAN,ABDOMENT AND PELVIS,W CONTRAST Louise Adam CNP Phone: tel: fax: mailto:[email or web address] Referral ID Status Reason Start Date Expiration Date Visits Re quested Visits Authorized [id number] Closed 01/19/2024 07/17/2024 1 1 Encounter Details Date Type Department Care Team (Latest Contact Info) Description 01/19/2024 Transcribe Orders Virtual Department 30 [place] [address] Louise Adam CNP 10 [place] [address] [email or web address] Constipation, unspecified constipation type (Primary Dx); Periumbilical [...] clinician's provided indication for this examination in [facility]:Outside Radiology Order; constipation TECHNIQUE: Multidetector-row CT of [...] system documented in this encounter Care Teams Crusher And Blender Operator Relationship Specialty Start Date End Date Imelda Preston MD 70 [place] [address] [email or web address] PCP - General Family Medicine 12/29/22 documented as of this encounter Additional Source Comments The information contained in this document represents components of the legal health record. It is not the complete legal health record.[facility]
--- OUTSIDE RECORDS SUMMARY | 2025-03-07 14:07 | XMS_ITS | Encounter Summary ---
Author Organization [facility] Address [address] [place] [address] Phone Care Team Providers Care Beef Cattle Farmer Name Role Phone Imelda Preston MD Primary Care Provider Encounter Details Date Type Department Care Team (Late st Contact Info) Description 04/02/2024 Procedure Pass [facility], [address] [address] Social History Tobacco Use Types Packs/Day Years [...] on filedocumented in this encounter Care Teams Beef Cattle Farmer Relationship Specialty Start Date End Date Imelda Preston MD [address] [place] [address] [email or web address] PCP - General Family Medicine 12/29/22 documented as of this encounter Additional Source Comments The information contained in this document represents components of the legal health record. It is not the complete legal health record.[facility]
--- OUTSIDE RECORDS SUMMARY | 2025-03-07 14:07 | XMS_ITS | Encounter Summary ---
Author Organization [facility] Address [address] [place] [address] Phone Care Team Providers Care Central Office Operator Supervisor Name Role Phone Imelda Preston MD Primary Care Provider Encounter Details Date Type Department Care Team (Late st Contact Info) Description 07/25/2023 Ancillary Orders [facility] [place], X-Ray - [address] [address] Imelda Preston MD 70 [place] [address] [email or web address] Chronic left-sided low back pain with left-sided [...] clinician's provided indication for this examination in [facility]:Pain REQUESTED INDICATION: Pain COMPARISON: None FINDINGS: [...] sciatica documented in this encounter Care Teams Central Office Operator Supervisor Relationship Specialty Start Date End Date Imelda Preston MD [address] [place] [address] [email or web address] PCP - General Family Medicine 12/29/22 documented as of this encounter Additional Source Comments The information contained in this document represents components of the legal health record. It is not the complete legal health record.[facility]
--- OUTSIDE RECORDS SUMMARY | 2025-03-07 14:07 | XMS_ITS | Encounter Summary ---
Author Organization [facility] Address [address] [place] [address] Phone Care Team Providers Care Watershed Manager Name Role Phone Camilla Amaro DO Primary Care Provider + [phone] Imelda Preston MD Primary Care Provider + [phone] Encounter Details Date Type Department Care Team (Late st Contact Info) Description 12/26/2022 Transcribe Orders Virtual Department 30 [place] [address] Imelda Preston MD [address] [place] [address] [email or web address] Left hip pain (Primary Dx) Social History [...] thigh documented in this encounter Care Teams Watershed Manager Relationship Specialty Start Date End Date Camilla Amaro DO PCP - General Family Medicine 06/28/19 12/28/22 Imelda Preston MD [address] [place] [address] PCP - General Family Medicine 12/29/22 documented as of this encounter Additional Source Comments The information contained in this document represents components of the legal health record. It is not the complete legal health record.[facility]
--- OUTSIDE RECORDS SUMMARY | 2025-03-07 14:07 | XMS_ITS | Encounter Summary ---
Author Organization [facility] Address [address] [place] [address] Phone Care Team Providers Care Producer Director Name Role Phone Imelda Preston MD Primary Care Provider Encounter Details Date Type Department Care Team (Late st Contact Info) Description 08/17/2023 Procedure Pass [facility], [address] [address] Social History Tobacco Use Types Packs/Day Years [...] on filedocumented in this encounter Care Teams Producer Director Relationship Specialty Start Date End Date Imelda Preston MD 70 [place] [address] [email or web address] PCP - General Family Medicine 12/29/22 documented as of this encounter Additional Source Comments The information contained in this document represents components of the legal health record. It is not the complete legal health record.[facility]
--- OUTSIDE RECORDS SUMMARY | 2025-03-07 14:07 | XMS_ITS | Encounter Summary ---
Author Organization [facility] Address [address] [place], [place] [address] Phone Care Team Providers Care Offset Press Operator Name Role Phone Imelda Preston MD Primary Care Provider + [phone] Reason for Referral * MRI/CAT Scan - Closed Specialty Diagnoses / Procedures Referred By Sukumar tamayo Referred To Contact Radiology Diagnoses Liver lesion Procedures MRI Abdomen CHG MRI, ABDOMEN, COMBO Louise Adam CNP Phone: tel: fax: mailto:[email or web address] Referral ID Status Reason Start Date Expiration Date Visits Re quested Visits Authorized [id number] Closed 04/02/2024 09/29/2024 1 1 Encounter Details Date Type Department Care Team (Latest Contact Info) Description 04/02/2024 Transcribe Orders Virtual Department 30 [place] [address] Louise Adam CNP 10 [place] [address] [email or web address] Liver lesion (Primary [...] liver documented in this encounter Care Teams Offset Press Operator Relationship Specialty Start Date End Date Imelda Preston MD 70 [place] [address] [email or web address] PCP - General Family Medicine 12/29/22 documented as of this encounter Additional Source Comments The information contained in this document represents components of the legal health record. It is not the complete legal health record.[facility]
--- OUTSIDE RECORDS SUMMARY | 2025-03-07 14:07 | XMS_ITS | Clinical Summary ---
Author Organization [facility] Address [address] [facility] [address] [place] [address] Care Team Providers Care Support Services Rep Name Role Phone Imelda Preston MD Primary Care Provider [phone] Kristen Lawson Unavailable Unavailable Allergies No known [...] AM EDT): Staying with a freind on [address] Assessment & Plan (08/08/2022 9:34 AM [...] Most Recently Relevant to Health Maintenance Insurance [facility] AETNA MEDICARE REPLACEMENT Care Teams Support Services Rep Relationship Specialty Start Date End Date Imelda Preston MD 70 [place] [address] PCP - General Family Medicine 08/08/22 Kristen Lawson Community Health Worker 11/28/22
--- OUTSIDE RECORDS SUMMARY | 2025-03-07 14:07 | XMS_ITS | Encounter Summary ---
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 Procedures MRI Lumbar Spine Imelda Preston MD Phone: tel: fax: mailto:[email or web address] Referral ID Status Reason Start Date Expiration Date Visits Re quested Visits Authorized [id number] Closed 08/17/2023 08/16/2024 1 1 Encounter Details Date Type Department Care Team (Latest Contact Info) Description 08/15/2023 Transcribe Orders Virtual Department 30 [place] [address] Imelda Preston MD [address] [place] [address] [email or web address] Arthritis of right hip (Primary Dx); Neurologic [...] disc documented in this encounter Care Teams Music Pastor Relationship Specialty Start Date End Date Imelda Preston MD [address] [place] [address] [email or web address] PCP - General Family Medicine 12/29/22 documented as of this encounter Additional Source Comments The information contained in this document represents components of the legal health record. It is not the complete legal health record.[facility]
--- OUTSIDE RECORDS SUMMARY | 2025-03-07 14:07 | XMS_ITS | Encounter Summary ---
Author Organization [facility] Address [address] [place] [address] Phone Care Team Providers Care Cellular Plastics Cutter Name Role Phone Imelda Preston MD Primary Care Provider Encounter Details Date Type Department Care Team (Late st Contact Info) Description 01/19/2024 Procedure Pass [facility], Ct Scan - [address] [address] Social History Tobacco Use Types Packs/Day Years [...] on filedocumented in this encounter Care Teams Cellular Plastics Cutter Relationship Specialty Start Date End Date Imelda Preston MD 70 [place] [address] [email or web address] PCP - General Family Medicine 12/29/22 documented as of this encounter Additional Source Comments The information contained in this document represents components of the legal health record. It is not the complete legal health record.[facility]
--- OUTSIDE RECORDS SUMMARY | 2025-03-07 14:07 | XMS_ITS | Encounter Summary ---
Author Organization [facility] Address [address] [place], [place] [id number] Phone Care Team Providers Care Mailing Specialist Name Role Phone Camilla Amaro DO Primary Care Provider + [phone] Imelda Preston MD Primary Care Provider + [phone] Encounter Details Date Type Department Care Team (Late st Contact Info) Description 07/22/2019 Procedure Pass [facility] Endoscopy Admitting Dept Virtual Department [address] [place] [address] Social History Tobacco Use Types Packs/Day Years [...] on filedocumented in this encounter Care Teams Mailing Specialist Relationship Specialty Start Date End Date Camilla Amaro DO PCP - General Family Medicine 06/28/19 12/28/22 Imelda Preston MD [address] [place] [id number] PCP - General Family Medicine 12/29/22 documented as of this encounter Additional Source Comments The information contained in this document represents components of the legal health record. It is not the complete legal health record.[facility]
--- OUTSIDE RECORDS SUMMARY | 2025-03-07 14:07 | XMS_ITS | Encounter Summary ---
Author Organization [facility] Address [address] [place] [address] Phone Care Team Providers Care Ticket Printer Name Role Phone Imelda Preston MD Primary Care Provider + [phone] Reason for Referral * MRI/CAT Scan - Closed Specialty Diagnoses / Procedures Referred By Sukumar tamayo Referred To Contact Radiology Diagnoses Disease of spinal cord, unspecified Procedures MRI Cervical Spine CHG MRI, CERV SPINE Lobo Silveira PA [address] [place] [id number] Phone: tel: fax: Referral ID Status Reason Start Date Expiration Date Visits Re quested Visits Authorized [id number] Closed 08/01/2024 01/28/2025 1 1 Encounter Details Date Type Department Care Team (Late st Contact Info) Description 08/01/2024 Transcribe Orders Virtual Department [address] [place] [address] Lobo Silveira PA [address] [place] [address] [place] [id number] Disease of spinal cord, unspecified (Primary Dx) [...] Primary documented in this encounter Care Teams Ticket Printer Relationship Specialty Start Date End Date Imelda Preston MD [address] [place] [address] [email or web address] PCP - General Family Medicine 12/29/22 documented as of this encounter Additional Source Comments The information contained in this document represents components of the legal health record. It is not the complete legal health record.[facility]
== END 2025-03-07 13:34 | disposition home or self-care (01) ==
LOC: HO.HNS 12:59
PROVIDERS: Visit Provider Neurological Surgery
DX: M48.062 Spinal stenosis, lumbar region with neurogenic claudication (principal)
CPT/HCPCS: 99213

== ENCOUNTER → 2025-03-07 12:58 | Outpatient (BNVA) | payer MEDICARE, MEDICAID, SELFPAY | PROVIDERS: Visit Provider Neurological Surgery | DX: M48.062 Spinal stenosis, lumbar region with neurogenic claudication (principal) | CPT/HCPCS: 99212 ==